=== PATIENT | male | born 1960 | race Caucasian/White ===

== ENCOUNTER 2025-04-12 03:58 | Emergency (ER) | payer BC, SELFPAY ==
[2025-04-12] VITALS (8 sets, daily range): BP systolic 103–140; BP diastolic 62–73; PULSE 51–62; TEMP 36.7; O2SAT 94–96; BMI 24.4
--- NOTE | 2025-04-12 04:07 | XR_ITS ---
The [address] [address] Patient Name: MICHAEL BAIRES MRN: [id number] date: 1960 Sex: M Assigned Patient Location: ED.MAIN Current Patient Location: Accession/Order Number: [id number] Exam Date: 04/12/2025 04:26 Report Date: 04/12/2025 08:28 At the request of: ALANNA MERAZ DO Procedure: XR chest 1V XR chest 1V 04/12/2025 4:31 AM SIGNS AND SYMPTOMS: ^CP PROTOCOL: Frontal radiograph of the chest COMPARISON: 12/14/2020 FINDINGS: The trachea is midline. The right-sided Aaizjr-t-Aluq has been removed in the interval. There is mild cardiomegaly. The lung parenchyma is clear. The bony thorax is intact. XR/XR chest 1V IMPRESSION: There has been interval development of mild cardiomegaly. A right-sided Puzdha-c-Huto has been removed. No focal consolidation. Impression dictated by: Ovidio Cade M.D. 04/12/2025 8:28 AM Dictation Location: [place] [address] Electronically authenticated by: [id number] Y Date: 04/12/2025 08:28
--- NOTE | 2025-04-12 04:07 | ECG_ITS ---
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 Measurements Intervals [place] Rate: 55 P: 47 NM: 180 QRS: 37 QRSD: 82 T: 43 QT: 414 QTc: 402 Interpretive Statements 1100 Sinus rhythm 3434 Septal myocardial infarction, age undetermined 9150 abnormal ECG No previous ECG available for comparison Electronically Signed On 04-12-2025 6:47:16 EST by LOUIE RAMIREZ M.D.
--- NOTE | 2025-04-12 04:11 | ED.GENADUL1 ---
HPI HPI - General Adult General Chief complaint: Chest Pain Stated complaint: CHEST PAIN Time Seen by Provider: 04/12/25 04:07 Source: patient Mode of arrival: ambulance History of Present Illness HPI narrative: Patient is a 65-year-old male presenting to the emergency department for evaluation of chest pain. 1 hour prior to arrival, the patient was awoken out of his sleep for chest pain. He states the pain was located in the center of his chest and radiated to his left arm. He states he became hot and sweaty when this occurred. He states he typically has chest pain secondary to GERD, however the radiation of pain to his arm and feeling of being hot bleeding concern for a possible heart attack. The patient states he had a heart attack back in 2019 where he needed a stent in his LAD for 100% occlusion. He is now on aspirin and statin daily. His last exercise stress test was September of this year, which he stated was normal. He states he is typically active with no symptoms of shortness of breath or chest pain. He denies any abdominal pain. No nausea or vomiting. He states the pain lasted approximate 20 minutes before subsiding. He is currently asymptomatic. He received 324 mg of oral aspirin by EMS providers. Related Data Home Medications ?Medication ?Instructions ?Recorded ?Confirmed aspirin 81 mg tablet,delayed 81 mg PO DAILY 04/12/25 04/12/25 release (Adult Aspirin Regimen) atorvastatin 10 mg tablet 10 mg PO DAILY 04/12/25 04/12/25 pantoprazole 40 mg tablet,delayed 40 mg PO DAILY 04/12/25 04/12/25 release Allergies Allergy/AdvReac Type Severity Reaction Status Date / Time azithromycin (From Zithromax) Allergy Hives Verified 04/12/25 04:09 Sulfa (Sulfonamide Allergy Hives Verified 04/12/25 04:09 Antibiotics) Review of Systems ROS Status of ROS 10 or more systems reviewed and unremarkable except as noted in history and below PFSH PFSH Social History Little interest or pleasure in doing things: not at all Feeling down, depressed, or hopeless: not at all Exam Narrative Exam Narrative: CONSTITUTIONAL: Well-appearing, answering questions and following commands appropriately SKIN: Was warm and dry. EYES: No conjunctival pallor. EARS, NOSE, THROAT: No JVD. RESPIRATORY: Clear to auscultation bilaterally, no wheezes, crackles, or stridor, no use of accessory muscles CARDIOVASCULAR: Normal rate and regular rhythm. There is no S3, S4, murmur, rub. Radial and dorsalis pedis pulses are 2+ and symmetrical. GASTROINTESTINAL: Abdomen was soft, non-tender, and non-distended. There is no guarding or rebound tenderness MUSCULOSKELETAL: There was no lower extremity edema, erythema, or tenderness. NEUROLOGIC: Patient is awake and alert. Facies were symmetrical. Constitutional Vital Signs, click to edit/add: Last Vital Signs Temp 98.1 F 04/12/25 04:05 Pulse 54 L 04/12/25 06:00 Resp 21 H 04/12/25 06:00 BP 108/66 04/12/25 06:00 Pulse Ox 96 04/12/25 06:00 O2 Del Method Room Air 04/12/25 04:05 Course Vital Signs Vital signs: Vital Signs Pulse Rate 62 04/12/25 04:02 Respiratory Rate 20 04/12/25 04:02 Blood Pressure 140/73 04/12/25 04:02 Pulse Oximetry 96 04/12/25 04:02 Temperature 98.1 F 04/12/25 04:05 Pulse Rate 54 L 04/12/25 06:00 Respiratory Rate 21 H 04/12/25 06:00 Blood Pressure 108/66 04/12/25 06:00 Pulse Oximetry 96 04/12/25 06:00 Oxygen Delivery Method Room Air 04/12/25 04:05 Medical Decision Making [facility] Narrative Medical decision making narrative: Patient is a 65-year-old male presenting to the emergency department for evaluation of chest pain beginning 1 hour prior to arrival. On arrival to the ED, patient received 325 mg of chewed aspirin and 0.4 mg sublingual nitroglycerin by EMS providers. Patient symptoms resolved after he took Mylanta, and prior to nitroglycerin administration. His vital signs on arrival are within normal limits. He is afebrile and hemodynamically stable. He is overall well-appearing with no active chest pain. He has a normal physical examination. Differential diagnosis includes ACS, pneumothorax, GERD, arrhythmia, or other electrolyte/metabolic derangement. IV was established and laboratory studies were obtained. 12 Lead EKG: Sinus bradycardia at a rate of 55. Normal axis. There are QS complexes in the septal leads, consistent with his prior history of AL. No ST segment elevations or depressions. QRS, UT, and QTc interval within normal limits. Final impression: Sinus bradycardia without evidence of acute myocardial ischemia. Laboratory studies were unremarkable. No significant electrolyte or metabolic derangement. No evidence of acute kidney injury. No anemia, leukocytosis, or thrombocytopenia. Initial and repeat 2-hour troponin negative. Chest x-ray independently reviewed/interpreted by myself demonstrated no acute cardiopulmonary process. On reevaluation, patient states he feels well. He has been pain-free since his arrival to the ED. Repeat set of vital signs remained within normal limits. I do believe he is stable for discharge. Given the resolution of his symptoms with Mylanta, his symptoms may be secondary to GERD. He has a HEART score of 4 (moderately suspicious history, age 65, greater than 3 risk factors/history of atherosclerotic disease) putting him at moderate risk for major adverse cardiac events. 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 He is already on a daily aspirin and statin. He was instructed to immediately return to the emergency department should his symptoms recur/worsen. Patient understands and agrees to the plan. FINAL IMPRESSION: #Acute chest pain, resolved DISPOSITION: Discharged home CONDITION: Good Lab Data Lab results reviewed: Yes I reviewed the patient's lab results Labs: Lab Results 04/12/25 04/12/25 Range/Units 04:20 05:35 WBC 4.6 (4.0-11.0) 10^3/uL RBC 4.39 L (4.70-6.10) 10^6/uL Hgb 13.1 L (14.0-18.0) g/dL Hct 38.7 L (42.0-54.0) % MCV 88.2 (80.0-94.0) fL MCH 29.8 (25.9-34.0) pg MCHC 33.9 (29.9-35.2) g/dL RDW 14.6 (11.0-15.0) % Plt Count 166 (150-450) 10^3/uL MPV 9.4 L (9.5-13.5) fL Neut % (Auto) 54.6 (43.0-75.0) % Lymph % (Auto) 30.5 (20.5-60.0) % [place] % (Auto) 10.0 (1.7-12.0) % Eos % (Auto) 4.3 (0.9-7.0) % Baso % (Auto) 0.4 (0.2-2.0) % Neut # (Auto) 2.5 (1.4-6.5) 10^3/uL Lymph # (Auto) 1.4 (1.2-3.8) 10^3/uL [place] # (Auto) 0.5 (0.3-0.8) 10^3/uL Eos # (Auto) 0.2 (0.0-0.7) 10^3/uL Baso # (Auto) 0.0 (0.0-0.1) 10^3/uL Abs Immat Gran (auto) 0.01 (0.00-0.03) 10^3/uL Imm/Tot Granulo (auto) 0.2 (0.0-0.5) % Sodium 137 (136-145) mmol/L Potassium 4.7 (3.5-5.1) mmol/L Chloride 105 (98-107) mmol/L Carbon Dioxide 29.3 (21.0-32.0) mmol/L Anion Gap 7.4 BUN 17.0 (7.0-18.0) mg/dL Creatinine 1.04 (0.70-1.30) mg/dL Est GFR ( Amer) >60 (>=60 mL/min/1.73m^2) Est GFR (Non-Af Amer) >60 (>=60 mL/min/1.73m^2) BUN/Creatinine Ratio 16.3 Glucose 122 H (74-106) mg/dL Calcium 9.0 (8.5-10.1) mg/dL Troponin I High Sens 11.4 11.5 (4.0-76.1) pg/mL Imaging Data Chest x-ray: Attestation: I personally reviewed and interpreted this imaging study as follows: ECG Data Attestation: I personally reviewed and interpreted this ECG as follows: Discharge Plan Discharge Chief Complaint: Chest Pain Clinical Impression: Chest pain Patient Disposition: Home, Self-Care Time of Disposition Decision: 05:30 Condition: Good Mode of Transportation: Private Vehicle Prescriptions / Home Meds: No Action pantoprazole 40 mg tablet,delayed release (DR/EC) 40 mg PO DAILY aspirin [Adult Aspirin Regimen] 81 mg tablet,delayed release (DR/EC) 81 mg PO DAILY atorvastatin 10 mg tablet 10 mg PO DAILY Print Language: Turkmen Instructions: Chest Pain (ED)
[2025-04-12 04:27] LABS: Hematocrit 38.7 % (42.0-54.0); Hemoglobin 13.1 g/dL (14.0-18.0); Immature Granulocytes Abs Auto 0.01 10^3/uL (0.00-0.03); Immature Granulocytes Pct Auto 0.2 % (0.0-0.5); Lymphocytes Absolute Auto 1.4 10^3/uL (1.2-3.8); Mean Corpuscular HGB Conc 33.9 g/dL (29.9-35.2); Mean Corpuscular Hemoglobin 29.8 pg (25.9-34.0); Mean Corpuscular Volume 88.2 fL (80.0-94.0); Platelet Count 166 10^3/uL (150-450); Red Blood Count 4.39 10^6/uL (4.70-6.10); White Blood Count 4.6 10^3/uL (4.0-11.0)
[2025-04-12 04:44] LABS: Anion Gap 7.4; Blood Urea Nitrogen 17.0 mg/dL (7.0-18.0); Calcium 9.0 mg/dL (8.5-10.1); Carbon Dioxide 29.3 mmol/L (21.0-32.0); Chloride 105 mmol/L (98-107); Estimated GFR (African America >60 (>=60 mL/min/1.73m^2); Estimated GFR (Non-African Ame >60 (>=60 mL/min/1.73m^2); Glucose 122 mg/dL (74-106); Sodium 137 mmol/L (136-145)
[2025-04-12 04:48] LABS: Potassium 4.7 mmol/L (3.5-5.1)
--- OUTSIDE RECORDS SUMMARY | 2025-04-12 05:59 | XMS_ITS | Clinical Summary ---
Author Organization [facility] s [facility] Address [facility] [address] [place] [address] Care Team Providers Care All Source Intelligence Analyst Name Role Phone Gloria Chase MD Primary Care Provider [phone] Allergies Active AllergyReactionsCriticalityNoted DateCommentsSulfa (Sulfonamide Antibiotics)Hives02/13/20179696RubgdzqttkazKkfjx46/03/2017 Medications No known medications Family History Medical HistoryRelationNameCommentsNo Known ProblemsFatherNo Known Problems MotherRelationNameStatusCommentsFatherMother Social History Tobacco UseTypesPacks/DayYears UsedDateSmoking Tobacco: NeverSmokeless Tobacco: NeverAlcohol UseStandard Drinks/WeekCommentsNo0 (1 standard drink = 0.6 oz pure alcohol)ChildcareAnswerDate SqtvabhxAmdvfpkuzOkmppdw73/10/2019EmploymentAnswer Date CuvhyrsgEvboimkadwRafjzjw44/10/2019Purpose - LifeAnswerDate RecordedPurpose and direction in dqppWtuxzie34/10/2021ex and Gender InformationValueDate RecordedSex Assigned at BirthNot on fileLegal CpkDtuo9812/15/2014 4:08 PM EDT Gender IdentityNot on fileSexual OrientationNot on file Last Filed Vital Signs Vital SignReadingTime TakenCommentsBlood Radryfas308/7510 1:15 PM EDT Zbvhg4627 11:25 AM NNRWkzhqyvhgwl60.7 ??C (98.1 ??F)03/08/2017 10:55 AM EDTRespiratory Oydr4080 11:25 AM EDTOxygen Tsxqkwemth08%03/08/2017 1:15 PM EDTInhaled Oxygen Concentration--Kkdybs62.1 kg (170 lb)03/08/2017 7:29 AM EDT Fditbm489.3 cm (5' 9 )03/08/2017 7:29 AM EDTBody Mass Index25. 7:29 AM EDT Plan of Treatment Not on file Medical Devices Not on file Insurance Care Teams Team MemberRelationshipSpecialtyStart DateEnd Date Gloria Chase MD PCP - GeneralFamily Vvpsrjvt16/2/17
--- OUTSIDE RECORDS SUMMARY | 2025-04-12 05:59 | XMS_ITS | Clinical Summary ---
Author Organization [facility] Address [address] [place] [address] Care Team Providers Care Ditching Machine Engineer Name Role Phone Unavailable Primary Care Provider Unavailabl e Family History Medical HistoryRelationNameCommentsDiabetesPaternal GrandmotherRelationName StatusCommentsChildAliveFatherAliveMaternal GrandfatherDeceasedMaternal GrandmotherDeceasedMotherAliveOtherSpouseAlivePaternal GrandmotherDeceased SiblingAlive Social History Tobacco UseTypesPacks/DayYears UsedDateSmoking Tobacco: Never Tobacco Cessation:Counseling Given: Not Answered Alcohol UseStandard Drinks/WeekCommentsNever0 (1 standard drink = 0.6 oz pure alcohol)caffeine: 2-3 cups per day teaSex and Gender InformationValueDate RecordedSex Assigned at BirthNot on fileLegal JzvEgqb7507/26/2022 6:43 PM EDT Gender IdentityNot on fileSexual OrientationNot on file Last Filed Vital Signs Vital SignReadingTime TakenCommentsBlood Ndhbcmaf494/7009 12:00 PM EDT Pulse--Temperature--Respiratory Rate--Oxygen Saturation--Inhaled Oxygen Concentration--Lqxjie17.6 kg (171 lb)03/20/2022 12:00 PM SNMZrepcv171.3 cm (5' 9 )03/20/2022 12:00 PM ESTBody Mass Index25.25105/20/2021 12:00 PM EST Plan of Treatment Not on file Insurance
--- OUTSIDE RECORDS SUMMARY | 2025-04-12 05:59 | XMS_ITS | Encounter Summary ---
Author Organization [facility] Address [address] [place] [address] Care Team Providers Care Shipfitter Helper Name Role Phone Domingo Sarah(Historical) Unavailable Candice vailable Gui Lujan MD Unavailable [phone] Shanita Kaplan APRN.GREEN LUMBER GRADER Unavailable [phone] Deyvn Hair MD Unavailable Sylvia Morris GREEN LUMBER GRADER Unavailable [phone] Chase Schultz MD Primary Care Provider [phone] Tom Umanzor MD Unavailable [phone] Alesia Trevizo MD Unavailable [phone] Source Comments In the event this information is protected by the Federal Confidentiality of Alcohol and Drug AbusePatient Records regulations: The Federal rules restrict any use of the information to criminally investigate or prosecute any alcohol or drug abuse patient.[facility] Reason for Visit * ReasonCommentsRefill Request Encounter Details DateTypeDepartmentCare Team (Latest Contact Info)Xgtxainnqpk28/23/2025Refill Thoracic Clinic [address] [id number] Malathi Massey, BUSINESS EXCELLENCE LEADER.GREEN LUMBER GRADER [address] [place] [address] Refill Request Social History Tobacco UseTypesPacks/DayYears UsedDateSmoking Tobacco: NeverPassive Smoke Exposure: NeverSmokeless Tobacco: NeverAlcohol UseStandard Drinks/WeekComments Never0 (1 standard drink = 0.6 oz pure alcohol)AUDIT-CAnswerDate RecordedQ1: How often do you have a drink containing alcohol?Never01/14/2020Average Number of DrinksNot on file01/14/2020Frequency of Binge DrinkingNot on file01/14/2020PHQ-2 AnswerDate RecordedPHQ-2 wmvuv901/15/2025Area Deprivation IndexAnswerDate RecordedNational Score (1-100), lower number is lower knqn41914State Score (1-10), lower number is lower fzzr4724Data from: https://www.neighborhoodatlas.medicine.[facility].edu/. Last address used for rabcubwwxkt6060 FZMOLVFL77/28/2024Sex and Gender InformationValueDate Recorded Sex Assigned at PduhfEoir52/28/2020 9:14 PM EDTLegal KsgYxpd42/02/2012 8:28 AM ESTGender YtugrqjnFmia57/28/2020 9:14 PM EDTSexual CcxpinqhokfPeqwteen68/28/2020 9:14 PM EDTdocumented as of this encounter Functional Status * Are you deaf or do you have serious difficulty hearing?AnswerDate of NhciukydrnVdqrpgBe64/08/2023 4:43 PM Geovanna Juarez RN * Are you blind or do you have serious difficulty seeing, even when wearing glasses?AnswerDate of VwmfdlejxhObeznwRm01/08/2023 4:43 PM Geovanna Juarez RN * Do you have serious difficulty walking or climbing stairs?AnswerDate of ZdjsczzcmjLzhnudCi53/08/2023 4:43 PM Geovanna Juarez RN * Do you have difficulty dressing or bathing?AnswerDate of AssessmentAuthorNo 04/20/2023 4:43 PM Geovanna Juarez RN * Because of a physical, mental, or emotional condition, do you have difficulty doing errands alone such as visiting a doctor's office or shopping?AnswerDate of YmgpcustnnOfskefOh11/08/2023 4:43 PM Geovanna Juarez RN documented as of this encounter Mental Status * Because of a physical, mental, or emotional condition, do you have serious difficulty concentrating, remembering, or making decisions?AnswerEntry Date LebqneIk96/08/2023 4:43 PM Geovanna Juarez RN documented in this encounter Plan of Treatment DateTypeDepartmentCare Team (Latest Contact Info)Zrfkmpzgmtr98/17/2026 8:15 AM EDTAppointment Radiology Pet CT [address] [place] [address] [place] [address] Ct CAP with contrast and lab09/04/2025 9:20 AM EDTVisit (SP) Office Hematology/Oncology [address] [place] [address] [place] [address] Gui Lujan MD [address] [place] [address] [place] [address] 6 month follow up for ct and lab resultsdocumented as of this encounter Visit Diagnoses Not on filedocumented in this encounter Care Teams Team MemberRelationshipSpecialtyStart DateEnd Date Chase Schultz MD [address] [place] [address] PCP - GeneralFamily Cpucjpru01/18/23 Domingo Sarah(Historical) Referring11/11/19 Gui Lujan MD [address] [place] [address] [place] [address] PhysicianHematology/Oncology01/05/20 Shanita Kaplan APRN.GREEN LUMBER GRADER [address] [place] [address] [place] [address] Nurse PractitionerHematology/Oncology01/05/20 Devyn Hair MD [address] [place] [address] [place] [address] PhysicianRadiation Oncology01/05/20 Sylvia Morris, GREEN LUMBER GRADER [address] [place] [address] [place] [address] ReferringFamily Medicine12/07/22 Tom Umanzor MD [address] [place] [address] Iglcfrzuhu68/4/23 Alesia Trevizo MD [address] [place] [address] Primary Staff EolcctxyaIopzhbcixl36/6/23documented as of this encounter
--- OUTSIDE RECORDS SUMMARY | 2025-04-12 05:59 | XMS_ITS | Clinical Summary ---
Author Organization [facility] Address [address] [place] [address] Phone Care Team Providers Care Casing In Line Setter Name Role Phone Chase Schultz MD Primary Care Provider [phone] Allergies Active AllergyReactionsCriticalityNoted DateCommentsAzithromycinHives,Rash, PiifubjUaw76/03/6132DkyxsytydQtvbegx61/08/2023Sulfa (Sulfonamide Antibiotics) Hives07/22/2009 Medications MedicationSigDispense QuantityRefillsLast FilledStart DateEnd DateStatus aspirin 81 mg EC tablet Take 1 tablet (81 mg) by mouth once daily.Active pantoprazole (ProtoNix) 40 mg EC tablet Take 1 tablet (40 mg) by mouth once daily.5Active atorvastatin (Lipitor) 10 mg tablet Indications:Atherosclerosis of [place] coronary artery of [place] heart without angina pectoris,Mixed hyperlipidemiaTake 1 tablet (10 mg) by mouth once daily. 90 tablet /6Active Active Problems ProblemNoted DateDiagnosed DateAcute ST elevation myocardial infarction (STEMI) involving left anterior descending coronary tnpirn9109/29/2024 Assessment & Plan (09/30/2024 12:59 PM EDT): Reports October 2018 Anterior STEMI managed by Dr. Beck at [facility]. Atherosclerotic heart disease of [place] coronary artery without angina pectoris 09/29/2024 Assessment & Plan (09/30/2024 1:01 PM EDT): October 2018 cardiac cath (records needed) LAD PCI/AVINASH Jun 2022 MPI No overt ischemia Prior anterior [place] EF 45% with mild anterior apical hypokinesis TID ratio 0.78 Report Jan 2024 MPI at [facility] Current daily activity > 4 METs without concerning symptoms Ischemic xfikigtijmvdus84/19/2025 Assessment & Plan (09/30/2024 1:02 PM EDT): Reports at time of October 2018 Anterior STEMI ef 30% - he was on 'some meds that I had to stop because made my blood pressure too low'; wore a lifevest for 3 months. October 2022 TTE EF 55-60% AR mild Hyperlipidemia, jqrozfnxyqk50/19/2025 Assessment & Plan (09/30/2024 1:03 PM EDT): Low intensity statin May 2024 HDL 35: LDL 88 BMI 25.0-25.9,adult09/29/2024 Assessment & Plan (09/30/2024 1:03 PM EDT): Reviewed the merits of healthy lifestyle choices on overall cardiovascular health. Family History Medical HistoryRelationNameCommentsNo Known ProblemsBrotherNo Known Problems FatherOvarian cancerMotherNo Known ProblemsSisterRelationNameStatusComments BrotherFatherMotherSister Social History Tobacco UseTypesPacks/DayYears UsedDateSmoking Tobacco: NeverSmokeless Tobacco: Never Tobacco Cessation:Counseling Given: Yes Alcohol UseStandard Drinks/WeekCommentsNever0 (1 standard drink = 0.6 oz pure alcohol)Sex and Gender InformationValueDate RecordedSex Assigned at BirthNot on fileLegal DtzOpri00/26/2022 4:30 PM ESTGender IdentityNot on fileSexual OrientationNot on file Last Filed Vital Signs Vital SignReadingTime TakenCommentsBlood Ezzkujwu920/8606 10:59 AM EDT Zplsk596610/27/2024 10:59 AM EDTTemperature--Respiratory Rate--Oxygen Saturation-- Inhaled Oxygen Concentration--Wkhpyu14.7 kg (178 lb)09/29/2024 10:14 AM EDT Xdioou386.5 cm (5' 9.5 )09/29/2024 10:14 AM EDTBody Mass Index25.9109/29/2024 10:14 AM EDT Plan of Treatment DateTypeDepartmentCare Team (Latest Contact Info)Epeaqmqvbrf98/17/2025 10:30 AM ESTOffice Visit [facility] [address] [phone] Timothy Stone MD [address] [facility] [address] [place], [place] [id number] Health MaintenanceDue DateLast DoneCommentsHIV Zpnecaare1961Lipid Panel 1960Yearly Adult Iuqjujhq1960MMR Vaccines (1 of 1 - Standard series) 2Diabetes Wfgquiaab73/06/1979Hepatitis C Mcbnsiovl36/06/1979 Pneumococcal Vaccine (1 of 2 - PCV)01/18/1980DTaP/Tdap/Td Vaccines (1 - Tdap) 1983PSA Prostate Cancer Vjmhyngcg16/06/2011RSV High Risk: (Elderly (60+) or Population) (1 - Risk 50-74 years 1-dose series)2011Zoster Vaccines (1 of 2)2011Influenza Vaccine (#1)5COVID-19 Vaccine (3 - 2024- season)501/, 2SigmoidoscopyDiscontinued 04/05/2022, 08/06/2020, 1804LvcuvautesiAumiouuobrtk94/11/2025, 04/05/2022 Colorectal Cancer ScreeningDiscontinuedCT ColonographyDiscontinuedFIT-DNA (Cologuard)DiscontinuedFITDiscontinuedHIB VaccinesAged OutNo longer eligible based on patient's age to complete this topicHPV VaccinesAged OutNo longer eligible based on patient's age to complete this topicHepatitis A VaccinesAged OutNo longer eligible based on patient's age to complete this topicHepatitis B VaccinesAged OutNo longer eligible based on patient's age to complete this topic IPV VaccinesAged OutNo longer eligible based on patient's age to complete this topicMeningococcal VaccineAged OutNo longer eligible based on patient's age to complete this topicRotavirus VaccinesAged OutNo longer eligible based on patient's age to complete this topic Insurance MemberSubscriberPlan / Payer (Effective 2024-Present)Name:Good Donahue Member ID:[id number] Relation to Subscriber:SelfName:Good Donahue Subscriber ID:[id number] Payer ID:[id number] (NAIC) Type:Not on file Address: [address] Care Teams Team MemberRelationshipSpecialtyStart DateEnd Date Chase Schultz MD [address] [facility] [place] [address] PCP - [facility] Medicine09/29/24
--- OUTSIDE RECORDS SUMMARY | 2025-04-12 05:59 | XMS_ITS | Encounter Summary ---
Author Organization [facility] Address [address] [place] [address] Care Team Providers Care Dowel Inspector Name Role Phone Domingo Sarah(Historical) Unavailable Candice vailable Gui Lujan MD Unavailable [phone] Shanita Kaplan APRN.QUALIFICATIONS EXAMINER Unavailable [phone] Devyn Hair MD Unavailable Sylvia Morris QUALIFICATIONS EXAMINER Unavailable [phone] Chase Schultz MD Primary Care Provider [phone] Tom Umanzor MD Unavailable [phone] Alesia Trevizo MD Unavailable [phone] Source Comments In the event this information is protected by the Federal Confidentiality of Alcohol and Drug AbusePatient Records regulations: The Federal rules restrict any use of the information to criminally investigate or prosecute any alcohol or drug abuse patient.[facility] Reason for Visit * ReasonOnset DateCommentsRefill Fpgyhkv0404/08/2025 Encounter Details DateTypeDepartmentCare Team (Latest Contact Info)Mogfgcthovc66/26/2025Refill [facility] [address] [place] [address] Malathi Massey, RN TRAVEL.QUALIFICATIONS EXAMINER [address] [place] [address] Refill Request Social History Tobacco UseTypesPacks/DayYears UsedDateSmoking Tobacco: NeverPassive Smoke Exposure: NeverSmokeless Tobacco: NeverAlcohol UseStandard Drinks/WeekComments Never0 (1 standard drink = 0.6 oz pure alcohol)AUDIT-CAnswerDate RecordedQ1: How often do you have a drink containing alcohol?Never01/14/2020Average Number of DrinksNot on file01/14/2020Frequency of Binge DrinkingNot on file01/14/2020PHQ-2 AnswerDate RecordedPHQ-2 /15/2025Area Deprivation IndexAnswerDate RecordedNational Score (1-100), lower number is lower zsmg667803/10/2024State Score (1-10), lower number is lower lucu5774Data from: https://www.neighborhoodatlas.[facility].edu/. Last address used for zcvcpahyagg[address] BAAMIWDX66/28/2024Sex and Gender InformationValueDate Recorded Sex Assigned at FxlbeNedm40/28/2020 9:14 PM EDTLegal PtiUzdp98/02/2012 8:28 AM ESTGender WnlphwfvUyhq06/28/2020 9:14 PM EDTSexual ZdaarufzwliBhwprrrd94/28/2020 9:14 PM EDTdocumented as of this encounter Functional Status * Are you deaf or do you have serious difficulty hearing?AnswerDate of PtncjzqlajAvkxwfHc39/08/2023 4:43 PM Geovanna Juarez RN * Are you blind or do you have serious difficulty seeing, even when wearing glasses?AnswerDate of PtucfcbtraXklyfnVg14/08/2023 4:43 PM Geovanna Juarez RN * Do you have serious difficulty walking or climbing stairs?AnswerDate of SqvufcgghdFzlrydDu52/08/2023 4:43 PM Geovanna Juarez RN * Do you have difficulty dressing or bathing?AnswerDate of AssessmentAuthorNo 04/20/2023 4:43 PM Geovanna Juarez RN * Because of a physical, mental, or emotional condition, do you have difficulty doing errands alone such as visiting a doctor's office or shopping?AnswerDate of AbmczxpunwKpwiwfWr82/08/2023 4:43 PM Geovanna Juarez RN documented as of this encounter Mental Status * Because of a physical, mental, or emotional condition, do you have serious difficulty concentrating, remembering, or making decisions?AnswerEntry Date LuaancWl32/08/2023 4:43 PM Geovanna Juarez RN documented in this encounter Plan of Treatment DateTypeDepartmentCare Team (Latest Contact Info)Ulsgrpytdyx42/17/2026 8:15 AM EDTAppointment Radiology Pet CT [address] [facility] [address] Ct CAP with contrast and lab09/04/2025 9:20 AM EDTVisit (SP) Office Hematology/Oncology [address] [place] [address] [place] [address] Gui Lujan MD [address] [place] [address] [place] [address] 6 month follow up for ct and lab resultsdocumented as of this encounter Visit Diagnoses Not on filedocumented in this encounter Care Teams Team MemberRelationshipSpecialtyStart DateEnd Date Chase Schultz MD [facility] [place] [address] PCP - GeneralFamily Btfrxfbi20/18/23 Domingo Sarah(Historical) Referring11/11/19 Gui Lujan MD [address] [place] [address] [place] [address] PhysicianHematology/Oncology01/05/20 Shanita Kaplan APRN.QUALIFICATIONS EXAMINER [address] [place] [address] [place] [address] Nurse PractitionerHematology/Oncology01/05/20 Devyn Hair MD [address] [place] [address] [place] [address] PhysicianRadiation Oncology01/05/20 Sylvia Morris, QUALIFICATIONS EXAMINER [address] [place] [id number] ReferringFamily Medicine12/07/22 oTm Umanzor MD [address] [place] [address] Tibzpxiqhe66/4/23 Alesia Trevizo MD [address] [place] [address] Primary Staff YvxzfgxelVhcjvxcygu45/6/23documented as of this encounter
--- OUTSIDE RECORDS SUMMARY | 2025-04-12 05:59 | XMS_ITS | Clinical Summary ---
Author Organization [facility] Address [address] [place] [id number] Care Team Providers Care [place] Layer Name Role Phone Domingo Sarah(Historical) Unavailable Candice vailable Gui Lujan MD Unavailable [phone] Shanita Kaplan APRN.SENIOR COMPLIANCE ANALYST Unavailable [phone] Devyn Hair MD Unavailable Sylvia Morris SENIOR COMPLIANCE ANALYST Unavailable [phone] Chase Schultz MD Primary Care Provider [phone] Tom Umanzor MD Unavailable [phone] Alesia Trevizo MD Unavailable [phone] Allergies Active AllergyReactionsCriticalityNoted DateCommentsAzithromycinHives,Rash 02/13/20174335DndmxfyehEbytnqgnclc18/08/2023Sulfa (Sulfonamide Antibiotics) 07/22/2009 Medications MedicationSigDispense QuantityRefillsLast FilledStart DateEnd DateStatus aspirin, enteric coated (ASPIRIN, ENTERIC COATED) 81 mg EC tablet Take 81 mg by mouth once daily.Active ZINC ORAL Take 30 mg by mouth once daily.Active ascorbic acid (VITAMIN C ORAL) Take 1,000 mg by mouth once daily.Active atorvastatin (LIPITOR) 10 mg tablet Take 10 mg by mouth once daily. Active B1/B2/niacin/B12/protease (B-COMPLEX WITH B-12 ORAL) Take 1 tablet by mouth once daily.03/16/2023ctive iv contrast (will be provided with radiology test) Indications:Malignant neoplasm of rectum (HCC)CT Chest ABD/PEL-Inject, intravenously, once for 1 dose.No IV access, insert saline lock prior to the beginning of sedation, infusion, injection of imaging exam. Discontinue saline lock post exam. IfPt. has a central line or IVAD, may access for administration according to line specific nursing protocol. Once exam is complete flush line and de-access according to line specific nursing protocol in the CT contrast administration guidelines link. 1 Each 09/03/2023ctive enteric contrast (will be provided with radiology test) Indications:Malignant neoplasm of rectum (HCC)For CT CHESTABD/PEL W IVCON Routine order Administer, As Directed One Time Only, via Oral, Rectal, both Oral and Rectal, Enteric Tube, Stoma or Indwelling Catheter, Enteric Contrast as designated perenteric contrast guidelines 1 Each 09/03/2023ctive iv contrast (will be provided with radiology test) Indications:Malignant neoplasm of rectum (HCC),Multiple lung nodulesCT Chest ABD/PEL-Inject, intravenously, once for 1 dose.No IV access, insert saline lock prior to the beginning of sedation, infusion, injection of imaging exam. Discontinue saline lock post exam. IfPt. has a central line or IVAD, may access for administration according to line specific nursing protocol. Once exam is complete flush line and de-access according to line specific nursing protocol in the CT contrast administration guidelines link. 1 Each 03/10/2024ctive enteric contrast (will be provided with radiology test) Indications:Malignant neoplasm of rectum (HCC),Multiple lung nodulesFor CT CHESTABD/PEL W IVCON Routine order Administer, As Directed One Time Only, via Oral, Rectal, both Oral and Rectal, Enteric Tube, Stoma or Indwelling Catheter, Enteric Contrast as designated perenteric contrast guidelines 1 Each 03/10/2024ctive iv contrast (will be provided with radiology test) Indications:Malignant neoplasm of rectum (HCC),Multiple lung nodules,Elevated blood sugarCT Chest ABD/PEL-Inject, intravenously, once for 1 dose.No IV access, insert saline lock prior to the beginning of sedation, infusion, injection of imaging exam. Discontinue saline lock post exam. IfPt. has a central line or IVAD, may access for administration according to line specific nursing protocol. Once exam is complete flush line and de-access according to line specific nursing protocol in the CT contrast administration guidelines link. 1 each 5Active enteric contrast (will be provided with radiology test) Indications:Malignant neoplasm of rectum (HCC),Multiple lung nodules,Elevated blood sugarFor CT CHESTABD/PEL W IVCON Routine order Administer, As Directed One Time Only, via Oral, Rectal, both Oral and Rectal, Enteric Tube, Stoma or Indwelling Catheter, Enteric Contrast as designated perenteric contrast guidelines 1 each 5Active ubidecarenone Q-10 (CO Q-10) 10 mg cap Take by mouth two times a day.Active iv contrast (will be provided with radiology test) Indications:Malignant neoplasm of rectum (HCC),Multiple lung nodulesCT Chest ABD/PEL-Inject, intravenously, once for 1 dose.No IV access, insert saline lock prior to the beginning of sedation, infusion, injection of imaging exam. Discontinue saline lock post exam. IfPt. has a central line or IVAD, may access for administration according to line specific nursing protocol. Once exam is complete flush line and de-access according to line specific nursing protocol in the CT contrast administration guidelines link. 1 each 5Active enteric contrast (will be provided with radiology test) Indications:Malignant neoplasm of rectum (HCC),Multiple lung nodulesFor CT CHESTABD/PEL W IVCON Routine order Administer, As Directed One Time Only, via Oral, Rectal, both Oral and Rectal, Enteric Tube, Stoma or Indwelling Catheter, Enteric Contrast as designated perenteric contrast guidelines [address] (PROTONIX) 40 mg tablet Take 1 tablet by mouth once daily. [address] (PROTONIX) 40 mg tablet Take 1 tablet by mouth once daily. 30 tablet Discontinued Active Problems ProblemNoted DateDiagnosed DateChest pain of uncertain cwhsoful76/07/2023 Rgntaxocb24/07/2023ttention to tvtxdqseo64/13/2021 Assessment & Plan (11/26/2020 9:13 AM EDT): ASSESSMENT: -this is a 60 y/o male??with rectal cancer s/p neoadjuvant therapy who underwent diagnostic laparoscopy, laparoscopic mobilization of splenic flexure, laparoscopic-assisted low anterior resection of the rectum and sigmoid with??total mesorectal excision and high vascular tie, double stapled low end- to-end colorectal anastomosis, flexible sigmoidoscopy, and creation of diverting loop??ileostomy on08/30/20 -he now presents for ileostomy closure PLAN: -POD 1 anorectal exam under anesthesia and complete colonoscopy, closure of loop ileostomy by segmental resection of ileum and stapled [id number]-ws-[id number] anastomosis -okay for GIS diet -passing flatus, no BM yet -[facility] paste ordered -no needs home going Hiatal ejvbxn4011/23/2020Malnutrition of moderate annvjj6209/03/2020 Assessment & Plan (09/09/2020 8:20 AM EDT): PLAN: -encourage GIS diet + supplements as tolerated Assessment & Plan (09/08/2020 10:27 AM EDT): PLAN: -encourage GIS diet + supplements as tolerated -discussed with patient about slowing down PO intake until stoma functioning more Assessment & Plan (09/07/2020 8:42 AM EDT): PLAN: -encourage GIS diet + supplements Assessment & Plan (09/06/2020 8:51 AM EDT): PLAN: -encourage GIS diet + supplements Smgxiqcpovzudczk73/19/2021 Assessment & Plan (11/26/2020 9:12 AM EDT): PLAN: -replace per protocol if phos <2.5 -monitor with labs Assessment & Plan (09/09/2020 8:19 AM EDT): PLAN: -replace per protocol if phos <2.5 -monitor with labs Assessment & Plan (09/08/2020 10:26 AM EDT): PLAN: -replace per protocol if phos <2.5 -monitor with labs Assessment & Plan (09/07/2020 8:42 AM EDT): PLAN: -replace per protocol if phos <2.5 -monitor with labs Assessment & Plan (09/06/2020 8:51 AM EDT): PLAN: -replace per protocol if phos <2.5 -monitor with labs Assessment & Plan (09/04/2020 8:10 AM EDT): PLAN: -replace per protocol if phos <2.5 -monitor with labs Assessment & Plan (09/03/2020 10:04 AM EDT): PLAN: -replace per protocol if phos <2.5 -monitor with labs Assessment & Plan (09/02/2020 12:37 PM EDT): PLAN: -replace per protocol if phos <2.5 -monitor with labs Assessment & Plan (09/01/2020 12:18 PM EDT): PLAN: -replace per protocol if phos <2.5 -monitor with labs Assessment & Plan (08/30/2020 6:21 AM EDT): PLAN: -replace per protocol if phos <2.5 -monitor with labs CAD (coronary artery disease)08/28/2020 Overview (08/28/2020): H/o myocardial infarction in October 2018 requiring PCI and stenting. Subsequently had positive stresstest requiring reintervention with PCI in October 2019. - ASA 81 - Home metop - Cards consult - Echo ordered Assessment & Plan (11/23/2020 1:13 PM EDT): S/p NC 10/2018, had stent x1 Current on ASA 81 mg, metoprolol, followed by local cardiology Last office visit 10/21/20 in [place] No CP with jogging short distance or stairs No recent stress test but has EKG today and Echo 08/29/20 in Epic Assessment & Plan (11/23/2020 11:02 AM EDT): ASSESSMENT: -patient with history of NC in October 2018 requiring PCI/stenting -then had + stress test requiring further intervention (PCI) in October 2019 PLAN: -continue with close cardiology F/U Assessment & Plan (09/09/2020 8:19 AM EDT): ASSESSMENT: -patient with history of NC in October 2018 requiring PCI/stenting -then had + stress test requiring further intervention (PCI) in October 2019 PLAN: -admitted for pre-operative clearance prior to planned OR -cardiology consulted; appreciate recommendations -underwent ECHO; EF ~50% -will need to discuss with home childcare teacher statin therapy Assessment & Plan (09/08/2020 10:26 AM EDT): ASSESSMENT: -patient with history of NC in October 2018 requiring PCI/stenting -then had + stress test requiring further intervention (PCI) in October 2019 PLAN: -admitted for pre-operative clearance prior to planned OR -cardiology consulted; appreciate recommendations -underwent ECHO; EF ~50% -will need to discuss with home childcare teacher statin therapy Assessment & Plan (09/07/2020 8:42 AM EDT): ASSESSMENT: -patient with history of NC in October 2018 requiring PCI/stenting -then had + stress test requiring further intervention (PCI) in October 2019 PLAN: -admitted for pre-operative clearance prior to planned OR -cardiology consulted; appreciate recommendations -underwent ECHO; EF ~50% -will need to discuss with home childcare teacher statin therapy Assessment & Plan (09/06/2020 8:50 AM EDT): ASSESSMENT: -patient with history of NC in October 2018 requiring PCI/stenting -then had + stress test requiring further intervention (PCI) in October 2019 PLAN: -admitted for pre-operative clearance prior to planned OR -cardiology consulted; appreciate recommendations -underwent ECHO; EF ~50% -will need to discuss with home childcare teacher statin therapy Assessment & Plan (09/05/2020 8:37 AM EDT): ASSESSMENT: -patient with history of NC in October 2018 requiring PCI/stenting -then had + stress test requiring further intervention (PCI) in October 2019 PLAN: -admitted for pre-operative clearance prior to planned OR -cardiology consulted; appreciate recommendations -underwent ECHO; EF ~50% -will need to discuss with home childcare teacher statin therapy Assessment & Plan (09/04/2020 8:09 AM EDT): ASSESSMENT: -patient with history of NC in October 2018 requiring PCI/stenting -then had + stress test requiring further intervention (PCI) in October 2019 PLAN: -admitted for pre-operative clearance prior to planned OR -cardiology consulted; appreciate recommendations -underwent ECHO; EF ~50% -will need to discuss with home childcare teacher statin therapy Assessment & Plan (09/03/2020 10:04 AM EDT): ASSESSMENT: -patient with history of NC in October 2018 requiring PCI/stenting -then had + stress test requiring further intervention (PCI) in October 2019 PLAN: -admitted for pre-operative clearance prior to planned OR -cardiology consulted; appreciate recommendations -underwent ECHO; EF ~50% -will need to discuss with home childcare teacher statin therapy Assessment & Plan (09/02/2020 12:37 PM EDT): ASSESSMENT: -patient with history of NC in October 2018 requiring PCI/stenting -then had + stress test requiring further intervention (PCI) in October 2019 PLAN: -admitted for pre-operative clearance prior to planned OR -cardiology consulted; appreciate recommendations -underwent ECHO; EF ~50% -will need to discuss with home childcare teacher statin therapy Assessment & Plan (09/01/2020 12:17 PM EDT): ASSESSMENT: -patient with history of NC in October 2018 requiring PCI/stenting -then had + stress test requiring further intervention (PCI) in October 2019 PLAN: -admitted for pre-operative clearance prior to planned OR -cardiology consulted; appreciate recommendations -underwent ECHO; EF ~50% -will need to discuss with home childcare teacher statin therapy Assessment & Plan (08/30/2020 6:23 AM EDT): ASSESSMENT: -patient with history of NC in October 2018 requiring PCI/stenting -then had + stress test requiring further intervention (PCI) in October 2019 PLAN: -admitted for pre-operative clearance prior to planned OR -cardiology consulted; appreciate recommendations -underwent ECHO; EF ~50% -will need to discuss with home childcare teacher statin therapy Acute post-operative pain08/24/2020 Assessment & Plan (11/23/2020 11:00 AM EDT): PLAN: -continue with multimodal pain management regimen per ERAS Assessment & Plan (09/09/2020 8:19 AM EDT): PLAN: -continue with multimodal pain management regimen -continue with valium PRN; will transition to PO in preparation for discharge Assessment & Plan (09/08/2020 10:26 AM EDT): PLAN: -continue with multimodal pain management regimen -continue with valium PRN; will transition to PO in preparation for discharge Assessment & Plan (09/07/2020 8:41 AM EDT): PLAN: -continue with multimodal pain management regimen -continue with valium PRN; will transition to PO in preparation for discharge Assessment & Plan (09/06/2020 8:50 AM EDT): PLAN: -continue with multimodal pain management regimen -continue with valium PRN Assessment & Plan (09/05/2020 8:37 AM EDT): PLAN: -continue with multimodal pain management regimen -continue with valium PRN Assessment & Plan (09/04/2020 8:07 AM EDT): PLAN: -continue with multimodal pain management regimen -continue with valium PRN Assessment & Plan (09/03/2020 10:04 AM EDT): PLAN: -continue with multimodal pain management regimen -continue with valium PRN Assessment & Plan (09/02/2020 12:36 PM EDT): PLAN: -continue with multimodal pain management regimen -continue with valium PRN Assessment & Plan (09/01/2020 12:16 PM EDT): PLAN: -continue with multimodal pain management regimen -continue with valium PRN Assessment & Plan (08/30/2020 6:24 AM EDT): PLAN: -continue with multimodal pain management regimen Assessment & Plan (08/24/2020 10:39 AM EDT): PLAN: -continue with multimodal pain management regimen Ileostomy in place08/24/2020 Assessment & Plan (09/09/2020 8:20 AM EDT): PLAN: -patient s/p DLI -viable and functioning following stoma intubation 09/08 -ostomy consult -[facility] consult Assessment & Plan (09/08/2020 10:26 AM EDT): PLAN: -patient s/p DLI -viable and functioning; small volume -ostomy consult; will ask team to intubate stoma today -[facility] consult Assessment & Plan (09/07/2020 8:42 AM EDT): PLAN: -patient s/p DLI -viable and functioning; small volume -ostomy consult -[facility] consult Assessment & Plan (09/06/2020 8:51 AM EDT): PLAN: -patient s/p DLI -viable and functioning -ostomy consult -[facility] consult Assessment & Plan (09/05/2020 8:37 AM EDT): PLAN: -patient s/p DLI -ostomy now functioning -ostomy consult -[facility] consult Assessment & Plan (09/04/2020 8:10 AM EDT): PLAN: -patient s/p DLI -ostomy now functioning -ostomy consult -[facility] consult Assessment & Plan (09/03/2020 10:05 AM EDT): PLAN: -patient s/p DLI -appears less congested; awaiting return of function -ostomy consult -[facility] consult Assessment & Plan (09/02/2020 12:37 PM EDT): PLAN: -patient s/p DLI -appears less congested this AM; awaiting return of function -ostomy consult -[facility] consult Assessment & Plan (09/01/2020 12:18 PM EDT): PLAN: -patient s/p DLI -appears congested this AM; awaiting return of function -ostomy consult -[facility] consult Assessment & Plan (08/31/2020 8:48 AM EDT): PLAN: -patient s/p DLI -viable; awaiting return of function -ostomy consult -[facility] consult Assessment & Plan (08/24/2020 10:40 AM EDT): PLAN: -patient s/p DLI -viable and functioning -ostomy consult -[facility] consult for new stoma HTN (hypertension)08/24/2020 Assessment & Plan (11/23/2020 1:14 PM EDT): Well controlled, on rx Assessment & Plan (11/23/2020 11:02 AM EDT): PLAN: -continue with home metoprolol as ordered -monitor vitals closely -parameters set Assessment & Plan (09/09/2020 8:19 AM EDT): PLAN: -continue with home metoprolol as ordered -monitor vitals closely -parameters set Assessment & Plan (09/08/2020 10:26 AM EDT): PLAN: -continue with home metoprolol as ordered -monitor vitals closely -parameters set Assessment & Plan (09/07/2020 8:42 AM EDT): PLAN: -continue with home metoprolol as ordered -monitor vitals closely -parameters set Assessment & Plan (09/06/2020 8:51 AM EDT): PLAN: -continue with home metoprolol as ordered -monitor vitals closely -parameters set Assessment & Plan (09/05/2020 8:37 AM EDT): PLAN: -continue with home metoprolol as ordered -monitor vitals closely -parameters set Assessment & Plan (09/04/2020 8:09 AM EDT): PLAN: -continue with home metoprolol as ordered -monitor vitals closely -parameters set Assessment & Plan (09/03/2020 10:04 AM EDT): PLAN: -continue with home metoprolol as ordered -monitor vitals closely -parameters set Assessment & Plan (09/02/2020 12:37 PM EDT): PLAN: -continue with home metoprolol as ordered -monitor vitals closely -parameters set Assessment & Plan (09/01/2020 12:18 PM EDT): PLAN: -continue with home metoprolol as ordered -monitor vitals closely -parameters set Assessment & Plan (08/30/2020 6:25 AM EDT): PLAN: -continue with home metoprolol as ordered -monitor vitals closely -parameters set Assessment & Plan (08/24/2020 10:40 AM EDT): PLAN: -continue with home metoprolol as ordered -parameters set -monitor vitals closely Multiple lung [id number]/15/2020Rectal wyxyms0603/10/2020 Assessment & Plan (11/26/2020 9:12 AM EDT): ASSESSMENT: -this is a 60 y/o male??with rectal cancer s/p neoadjuvant therapy who underwent diagnostic laparoscopy, laparoscopic mobilization of splenic flexure, laparoscopic-assisted low anterior resection of the rectum and sigmoid with??total mesorectal excision and high vascular tie, double stapled low end- to-end colorectal anastomosis, flexible sigmoidoscopy, and creation of diverting loop??ileostomy on08/30/20 -he now presents for ileostomy closure PLAN: -POD 1 anorectal exam under anesthesia and complete colonoscopy, closure of loop ileostomy by segmental resection of ileum and stapled nezr-wo-yluo anastomosis Assessment & Plan (09/09/2020 8:20 AM EDT): ASSESSMENT: -this is a 60 y/o male??with rectal cancer s/p neoadjuvant therapy who presents for preadmission prior to 08/30 LAR for rectal cancer PLAN: -now POD 10 diagnostic laparoscopy, laparoscopic mobilization of splenic flexure, laparoscopic-assisted low anterior resection of the rectum and sigmoid with total mesorectal excision and high vascular tie, double stapled low end-to-end colorectal anastomosis, flexible sigmoidoscopy, and creation of diverting loop ileostomy -continue with GIS diet + supplements as tolerated -ileostomy viable and functioning following stoma intubation on 09/08 -Oscar removed 09/04 and patient voiding -HHC consult; arranged per CM -ostomy consult Assessment & Plan (09/08/2020 10:27 AM EDT): ASSESSMENT: -this is a 60 y/o male??with rectal cancer s/p neoadjuvant therapy who presents for preadmission prior to 08/30 LAR for rectal cancer PLAN: -now POD 9 diagnostic laparoscopy, laparoscopic mobilization of splenic flexure, laparoscopic-assisted low anterior resection of the rectum and sigmoid with total mesorectal excision and high vascular tie, double stapled low end-to-end colorectal anastomosis, flexible sigmoidoscopy, and creation ofdiverting loop ileostomy -continue with GIS diet + supplements as tolerated; limiting PO at present given scant output/nausea this AM -ileostomy viable and functioning; small amount -will ask ostomy to intubate stoma today -KUB -Oscar removed 09/04 and patient voiding -HHC consult; arranged per CM -ostomy consult Assessment & Plan (09/07/2020 8:42 AM EDT): ASSESSMENT: -this is a 60 y/o male??with rectal cancer s/p neoadjuvant therapy who presents for preadmission prior to 08/30 LAR for rectal cancer PLAN: -now POD 8 diagnostic laparoscopy, laparoscopic mobilization of splenic flexure, laparoscopic-assisted low anterior resection of the rectum and sigmoid with total mesorectal excision and high vascular tie, double stapled low end-to-end colorectal anastomosis, flexible sigmoidoscopy, and creation ofdiverting loop ileostomy -continue with GIS diet + supplements -ileostomy viable and functioning; small amount -Oscar removed 09/04 and patient voiding -HHC consult; arranged per CM -ostomy consult Assessment & Plan (09/06/2020 8:51 AM EDT): ASSESSMENT: -this is a 60 y/o male??with rectal cancer s/p neoadjuvant therapy who presents for preadmission prior to 08/30 LAR for rectal cancer PLAN: -now POD 7 diagnostic laparoscopy, laparoscopic mobilization of splenic flexure, laparoscopic-assisted low anterior resection of the rectum and sigmoid with total mesorectal excision and high vascular tie, double stapled low end-to-end colorectal anastomosis, flexible sigmoidoscopy, and creation ofdiverting loop ileostomy -continue with GIS diet + supplements -ileostomy viable and functioning -Oscar removed 09/04 and patient voiding -HHC consult; arranged per CM -ostomy consult Assessment & Plan (09/04/2020 8:11 AM EDT): ASSESSMENT: -this is a 60 y/o male??with rectal cancer s/p neoadjuvant therapy who presents for preadmission prior to 08/30 LAR for rectal cancer PLAN: -now POD 4 diagnostic laparoscopy, laparoscopic mobilization of splenic flexure, laparoscopic-assisted low anterior resection of the rectum and sigmoid with total mesorectal excision and high vascular tie, double stapled low end-to-end colorectal anastomosis, flexible sigmoidoscopy, and creation ofdiverting loop ileostomy -start Clears today -ostomy functioning -leave Oscar in place -HHC consult -ostomy consult Assessment & Plan (09/03/2020 10:05 AM EDT): ASSESSMENT: -this is a 60 y/o male??with rectal cancer s/p neoadjuvant therapy who presents for preadmission prior to 08/30 LAR for rectal cancer PLAN: -now POD 4 diagnostic laparoscopy, laparoscopic mobilization of splenic flexure, laparoscopic-assisted low anterior resection of the rectum and sigmoid with total mesorectal excision and high vascular tie, double stapled low end-to-end colorectal anastomosis, flexible sigmoidoscopy, and creation ofdiverting loop ileostomy -maintain NPO/sips for now -ileostomy less congested; awaiting return of bowel function -leave Oscar in place -[facility] consult -ostomy consult Assessment & Plan (09/02/2020 12:38 PM EDT): ASSESSMENT: -this is a 60 y/o male??with rectal cancer s/p neoadjuvant therapy who presents for preadmission prior to 08/30 LAR for rectal cancer PLAN: -now POD 3 diagnostic laparoscopy, laparoscopic mobilization of splenic flexure, laparoscopic-assisted low anterior resection of the rectum and sigmoid with total mesorectal excision and high vascular tie, double stapled low end-to-end colorectal anastomosis, flexible sigmoidoscopy, and creation ofdiverting loop ileostomy -maintain NPO/sips for now -ileostomy less congested; awaiting return of bowel function -leave Oscar in place -[facility] consult -ostomy consult Assessment & Plan (09/01/2020 12:18 PM EDT): ASSESSMENT: -this is a 60 y/o male??with rectal cancer s/p neoadjuvant therapy who presents for preadmission prior to 08/30 LAR for rectal cancer PLAN: -now POD 2 diagnostic laparoscopy, laparoscopic mobilization of splenic flexure, laparoscopic-assisted low anterior resection of the rectum and sigmoid with total mesorectal excision and high vascular tie, double stapled low end-to-end colorectal anastomosis, flexible sigmoidoscopy, and creation ofdiverting loop ileostomy -maintain NPO/sips for now -ileostomy congested; awaiting return of bowel function -leave Oscar in place -[facility] consult -ostomy consult Assessment & Plan (08/31/2020 8:48 AM EDT): ASSESSMENT: -this is a 60 y/o male??with rectal cancer s/p neoadjuvant therapy who presents for preadmission prior to 08/30 LAR for rectal cancer PLAN: -now POD 1 diagnostic laparoscopy, laparoscopic mobilization of splenic flexure, laparoscopic-assisted low anterior resection of the rectum and sigmoid with total mesorectal excision and high vascular tie, double stapled low end-to-end colorectal anastomosis, flexible sigmoidoscopy, and creation ofdiverting loop ileostomy -maintain NPO/sips for now -ileostomy viable; awaiting return of bowel function -leave Oscar in place; remove stents today -[facility] consult -ostomy consult Assessment & Plan (08/29/2020 10:03 AM EDT): 60 year old male??with rectal cancer s/p neoadjuvant therapy who presents for preadmission prior to08/30 LAR for rectal cancer. Assessment: Cleared by cardiology yesterday. No active concerns, plan for OR tomorrow. PLAN: - Neuro: No current pain - Cardiac: HDS. Home metoprolol, ASA 81. Echo obtained, to be reviewed by cards. - Respiratory: Encourage IS, BPH - GI: Regular diet, NPO tonight prior to OR. Nursing staff to please assist with bowel prep beginning at 5pm TODAY. Written handout at bedside, orders placed. - Renal: Monitor UOP. Strict I/Os. Replete electrolytes prn. - Heme: No clinical evidence of bleeding - ID: None indicated - Endo: None indicated - Activity: Encourage OOB, ambulate - Prophylaxis: SCDs, SQH - Dispo: Admit to RNF, OR tomorrow Assessment & Plan (08/28/2020 5:31 PM EDT): 60 year old male??with rectal cancer s/p neoadjuvant therapy who presents for preadmission prior to08/30 LAR for rectal cancer. Assessment: No active concerns, awaiting clearance per cards PLAN: - Neuro: No current pain - Cardiac: HDS. Home metoprolol, ASA 81. Echocardiogram ordered. Cardiology consult, appreciate further recommendations for preoperative evaluation. - Respiratory: Encourage IS, BPH - GI: Regular diet, NPO Sunday prior to OR. - Renal: Monitor UOP. Strict I/Os. Replete electrolytes prn. 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 -he has completed HANNA and now presents for resection PLAN: -POD 1 -diet as tolerated -ileostomy viable and functioning -ostomy consult -[facility] consult Resolved Problems ProblemNoted DateDiagnosed DateResolved DatePersonal history of rectal cancer /KI (acute kidney injury)/ Assessment & Plan (09/09/2020 8:19 AM EDT): PLAN: -resolved -noted to have bump in Cr; now normal on AM labs -UA unremarkable -renal US done 09/01 -continue to trend Cr with labs -Oscar removed 09/04 and patient voiding Assessment & Plan (09/08/2020 10:26 AM EDT): PLAN: -resolved -noted to have bump in Cr; now normal on AM labs -UA unremarkable -renal US done 09/01 -continue to trend Cr with labs -Oscar removed 09/04 and patient voiding Assessment & Plan (09/07/2020 8:42 AM EDT): PLAN: -noted to have bump in Cr; now normal on AM labs -UA unremarkable -renal US done 09/01 -continue to trend Cr with labs -Oscar removed 09/04 and patient voiding Assessment & Plan (09/06/2020 8:50 AM EDT): PLAN: -noted to have bump in Cr; downtrending now 1.64 from 3.39 -UA unremarkable -renal US done 09/01 -continue to trend Cr with labs -Oscar removed 09/04 and patient voiding Assessment & Plan (09/05/2020 8:37 AM EDT): PLAN: -noted to have bump in Cr; downtrending now 1.88 from 3.39 -UA unremarkable -maintain Oscar for now -renal US done 09/01 -continue to trend Cr with labs -oscar removed 09/04 Assessment & Plan (09/04/2020 8:08 AM EDT): PLAN: -noted to have bump in Cr; downtrending now 1.88 from 3.39 -UA unremarkable -maintain Oscar for now -renal US done 09/01 -continue to trend Cr with labs -will remove oscar catheter at 12pm today Assessment & Plan (09/03/2020 10:04 AM EDT): PLAN: -noted to have bump in Cr; remains elevated -UA unremarkable -maintain Oscar for now -renal US done 09/01 -continue to trend Cr with labs -discussed with urology this AM, likely needs more fluids Assessment & Plan (09/02/2020 12:37 PM EDT): PLAN: -noted to have bump in Cr overnight; starting to down-trend -UA unremarkable -maintain Oscar for now -renal US done 09/01 -continue to trend Cr with labs Assessment & Plan (09/01/2020 12:17 PM EDT): PLAN: -noted to have bump in Cr overnight -UA pending -maintain Oscar for now -will obtain renal US -continue to trend Cr with labs Neuropathy due to chemotherapeutic drugThrombocytopenia, orekhpavh16 Encounters DateTypeDepartmentCare RqrbZtydbsosfnm18/26/2025[facility] [address] [place], [place] [id number] Malathi Massey, TRANSPORT CONDUCTOR.SENIOR COMPLIANCE ANALYST Refill Lesstxl2104/05/2025[facility] [address] [place] [id number] Malathi Massey, TRANSPORT CONDUCTOR.SENIOR COMPLIANCE ANALYST Refill Sijifwy4503/07/2025[facility] [address] [place] [id number] Malathi Massey, TRANSPORT CONDUCTOR.SENIOR COMPLIANCE ANALYST Refill Tyqjeaz6602/27/2025 9:00 AM EDTVisit (SP) Office Hematology/Oncology [address] [place] [address] [place] [address] Gui Lujan MD Malignant neoplasm of rectum (HCC) (Primary Dx); Multiple lung nodules; Malignant neoplasm of rectosigmoid junction (HCC); Encounter for follow-up examination after completed treatment for conditions other than malignant neoplasm; Weqboduxbqr52/17/0276Dizqrx60/10/2025 7:25 AM EDT - 02/20/2025 11:59 PM EDT Hospital Encounter Radiology Pet CT [address] [place] [address] Malignant neoplasm of rectum (HCC) [C20] Discharge Disposition: Home02/19/2025Travelfrom Last 3 Months Family History Medical HistoryRelationCommentsNo Known ProblemsBrotherNo Known ProblemsFather Lung cancerMaternal GrandfatherLung cancerMaternal GrandmotherNo Known Problems MotherNo Known ProblemsPaternal GrandfatherBreast CancerPaternal GrandmotherNo Known ProblemsSon 1No Known ProblemsSon 2No Known ProblemsSon 3Anesthesia ProblemsNo Family HistoryRelationStatusCommentsBrotherAliveFatherAliveMaternal GrandfatherDeceasedMaternal GrandmotherDeceasedMotherAlivePaternal Grandfather DeceasedPaternal GrandmotherDeceasedSon 1AliveSon 2AliveSon 3Alive Social History Tobacco UseTypesPacks/DayYears UsedDateSmoking Tobacco: NeverPassive Smoke Exposure: NeverSmokeless Tobacco: Never Tobacco Cessation:Counseling Given: Not Answered Alcohol UseStandard Drinks/WeekCommentsNever0 (1 standard drink = 0.6 oz pure alcohol)AUDIT-CAnswerDate RecordedQ1: How often do you have a drink containing alcohol?Never01/14/2020Average Number of DrinksNot on file01/14/2020Frequency of Binge DrinkingNot on file01/14/2020PHQ-2AnswerDate RecordedPHQ-2 score0 5Area Deprivation IndexAnswerDate RecordedNational Score (1-100), lower number is lower akye792903/10/2024State Score (1-10), lower number is lower risk4 4Data from: https://www.neighborhoodatlas.medicine.[facility].edu/. Last address used for enpr[address]kn[address] YOYSIGXE93/28/2024Sex and Gender Information ValueDate RecordedSex Assigned at OmuwwUczi94/28/2020 9:14 PM EDTLegal SexMale 04/14/2012 8:28 AM ESTGender FsriqvkmYrmx07/28/2020 9:14 PM EDTSexual KifffousqdmBrbqzers31/28/2020 9:14 PM EDT Last Filed Vital Signs Vital SignReadingTime TakenCommentsBlood Ddpiavde766/7202/27/2025 9:15 AM EDT Xrnui129602/27/2025 9:15 AM AETGqadlkwuhxb75.3 ??C (97.4 ??F)02/27/2025 9:15 AM EDTRespiratory Uoko5553 9:15 AM EDTOxygen Npzxicdecx54%02/27/2025 9:15 AM EDTInhaled Oxygen Concentration--Zkrglx37.4 kg (168 lb 6.9 oz)02/27/2025 9:15 AM SZPTlcvyr962.3 cm (5' 9 )10/22/2024 8:59 AM EDTBody Mass Index24.87 10/22/2024 8:59 AM EDT Plan of Treatment DateTypeDepartmentCare Team (Latest Contact Info)Bzuokruclcr63/17/2026 8:15 AM EDTAppointment Radiology Pet CT [address] [place] [place] [address] Ct CAP with contrast and lab09/04/2025 9:20 AM EDTVisit (SP) Office Hematology/Oncology [address] [place] [address] [place] [address] Gui Lujan MD [address] [place] [address] [place] [address] 6 month follow up for ct and lab resultsHealth MaintenanceDue DateLast Done CommentsAnnual PCP Team Chronic Disease Visit1979Anxiety Screening 1979Depression Hzlgoawaq40/06/1979HIV Egdgytcpw47/06/1979Hepatitis C Zjvsegwvh17/06/1979LDL Mawnmfndwdy66/06/1979DTaP,Tdap,Td Vaccine (1 - Tdap) 01/18/1980Lipid Wbipaoxgw96/06/1996CT Knsbugilwask24/06/2006Cologuard (FIT-DNA) 2006Fecal Occult Blood2006Pneumococcal Vaccine: 50+ (1 of 1 - PCV) 2011Shingrix Vaccine (1 of 2)2011Covid-19 Vaccine (3 - season)501/, 05/16/2021Influenza Vaccine (#1)2025 Cjvfbvwbjeipt00/26/221769/1Prostate Cancer Screening Uhoiotcbnd72/17/2027 2Diabetes Lhotlmazd78/02/2025, 02/20/2025, 09/01/2024, Additional history pbxyviQfofsyjfspu70/06/202806/03/2025, 2Colorectal Cancer Sboifurnc58/06/2028RSV Vaccine (1 - 1-dose 75+ series)01/18/2036 Medical Devices ImplantedTypeAreaManufacturerDevice IdentifierShelf Expiration DateModel / Serial / LotPort Powerport Isp Groshong 8fr Titanium Implantable Infusion Custom - [id number] Implanted:Qty: [facility]: ChestBARD PERIPHERAL CHWOXXLE68/[id number] / / [id number] Procedures Procedure NamePriorityDate/TimeAssociated DiagnosisCommentsCT CHEST W IVCON Cbixcos4302/20/2025 9:12 AM EDT Malignant neoplasm of rectum (HCC) Multiple lung nodules Elevated blood sugar CT ABD/PEL W GPIWRJjkoujv76/10/2025 9:12 AM EDT Malignant neoplasm of rectum (HCC) Multiple lung nodules Elevated blood sugar CEA IUMPgvyllr64/10/2025 7:26 AM EDT Malignant neoplasm of rectum (HCC) Multiple lung nodules Elevated blood sugar CBC + WGLFFqqzgxs76/10/2025 7:26 AM EDT Malignant neoplasm of rectum (HCC) Multiple lung nodules Elevated blood sugar COMPREHENSIVE METABOLIC RXURQXcwbeit28/10/2025 7:26 AM EDT Malignant neoplasm of rectum (HCC) Multiple lung nodules Elevated blood sugar HEMOGLOBIN B9ZNdmhpdm14/10/2025 7:26 AM EDT Malignant neoplasm of rectum (HCC) Multiple lung nodules Elevated blood sugar COLONOSCOPY OWDOVSFJUArytioa79/11/2025 9:04 AM EDT Personal history of colon cancer PSA VRCRMMRASJQcspefg28/17/2022 8:03 AM EDT Malignant neoplasm of rectum (HCC) Encounter for screening for malignant neoplasm of prostate TBKKLOMDACQEP48/26/2021 1:15 PM EDT from Last 3 Months or Most Recently Relevant to Health Maintenance Results * CT ABD/PEL W IVCON (02/20/2025 9:12 AM EDT)Anatomical RegionLateralityModality AbdomenNuclear Medicine, Nuclear MedicineSpecimen (Source)Anatomical Location / LateralityCollection Method / VolumeCollection TimeReceived Time02/20/2025 9:12 AM EDT Impressions 02/22/2025 1:35 PM EDT IMPRESSION: No evidence of intra-abdominal/pelvic metastases. ??No interval change since 09/01/24. Transcribe Date/Time: Feb 22 2025 ??1:16P Dictated by: NIMISHA WATERS MD This examination was interpreted and the report reviewed and electronically signed by: NIMISHA WATERS MD on Feb 22 2025 ??1:33PM ??EST Thank you for allowing us to participate in the care of your patient. Should there be any questions regarding this interpretation, please call [phone]. If you are unable to reach us at the number above, please feel free to contact [facility]Radiology at [phone]. Narrative 02/22/2025 1:35 PM EDT * * *Final Report* * * DATE OF EXAM: Feb 20 2025 ??9:12AM ?? NRC ?? 0530 ??- ??CT ABD/PEL W IVCON ??/ PROCEDURE REASON: multiple diagnoses ? * * * * Physician Interpretation * * * * RESULT: EXAMINATION: ??CT ABDOMEN AND PELVIS WITH IV CONTRAST CLINICAL HISTORY: Colorectal neoplasm TECHNIQUE: CT of the abdomen and pelvis was performed using standard technique, scanning from just above the dome of the diaphragm to the symphysis pubis. MQ: ??CTAP_3 Contrast: IV: ??100 ml of Omnipaque 350 Oral: ??500 ml of Omni 240 10-25ml diluted with water CT Radiation dose: Integrated Dose-length product (DLP) for this visit = ?? 739 mGy*cm. CT Dose Reduction Employed: Automated exposure control (AEC) COMPARISON: 09/01/24 RESULT: Liver: No mass. Biliary: No bile duct dilation. ??Gallbladder is unremarkable. Spleen: No mass. No splenomegaly. Pancreas: No mass or duct dilation. Adrenals: No mass. Kidneys: Subcentimeter lesions that are too small to characterize but likely benign. GI tract: No dilation or wall thickening. Surgical staple lines are noted in the rectosigmoid colon and small bowel in the right abdomen. Lymph nodes: No abdominal or pelvic lymphadenopathy. Mesentery/Peritoneum: No ascites or mass. Retroperitoneum: No mass. Vasculature: - Abdominal aorta and iliac arteries: Atherosclerotic calcifications without aneurysm. - Celiac and SMA: Patent without stenosis. - Portal venous system (SMV, splenic vein, portal vein and branches): Patent. - Hepatic veins: Patent. Pelvis: No mass, ascites or fluid collection. Urinary bladder is decompressed. ??Nonspecific urinary bladder wall thickening may be accentuated by underdistention. ??Prominent presacral soft tissue most likely related to postoperative change, stable. 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 ??No suspicious lytic or blastic osseous lesions. Lower thorax: A chest CT performed will be reported separately. Superintendent Plant (topogram) images: No additional findings. Procedure Note Provider, [facility] [place] - 02/22/2025 * * *Final Report* * * DATE OF EXAM: Feb 20 2025 9:12AM [facility] 0530 - CT ABD/PEL W IVCON / PROCEDURE REASON: multiple diagnoses * * * * Physician Interpretation * * * * RESULT: EXAMINATION: CT ABDOMEN AND PELVIS WITH IV CONTRAST CLINICAL HISTORY: Colorectal neoplasm TECHNIQUE: CT of the abdomen and pelvis was performed using standard technique, scanning from just above the dome of the diaphragm to the symphysis pubis. MQ: CTAP_3 Contrast: IV: 100 ml of Omnipaque 350 Oral: 500 ml of Omni 240 10-25ml diluted with water CT Radiation dose: Integrated Dose-length product (DLP) for this visit = 739 mGy*cm. CT Dose Reduction Employed: Automated exposure control (AEC) COMPARISON: 09/01/24 RESULT: Liver: No mass. Biliary: No bile duct dilation. Gallbladder is unremarkable. Spleen: No mass. No splenomegaly. Pancreas: No mass or duct dilation. Adrenals: No mass. Kidneys: Subcentimeter lesions that are too small to characterize but likely benign. GI tract: No dilation or wall thickening. Surgical staple lines are noted in the rectosigmoid colon and small bowel in the right abdomen. Lymph nodes: No abdominal or pelvic lymphadenopathy. Mesentery/Peritoneum: No ascites or mass. Retroperitoneum: No mass. Vasculature: - Abdominal aorta and iliac arteries: Atherosclerotic calcifications without aneurysm. - Celiac and SMA: Patent without stenosis. - Portal venous system (SMV, splenic vein, portal vein and branches): Patent. - Hepatic veins: Patent. Pelvis: No mass, ascites or fluid collection. Urinary bladder is decompressed. Nonspecific urinary bladder wall thickening may be accentuated by underdistention. Prominent presacral soft tissue most likely related to postoperative change, stable. 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 No suspicious lytic or blastic osseouslesions. Lower thorax: A chest CT performed will be reported separately. Superintendent Plant (topogram) images: No additional findings. IMPRESSION IMPRESSION: No evidence of intra-abdominal/pelvic metastases. No interval change since 09/01/24. Transcribe Date/Time: Feb 22 2025 1:16P Dictated by: NIMISHA WATERS MD This examination was interpreted and the report reviewed and electronically signed by: NIMISHA WATERS MD on Feb 22 2025 1:33PM EST Thank you for allowing us to participate in the care of your patient. Should there be any questions regarding this interpretation, please call [phone]. If you are unable to reach us at the number above, please feel free to contact [facility] at [phone]. Authorizing ProviderResult TypeResult StatusVivek Abhyankar MDCT-PAMAFinal Result * CT CHEST W IVCON (02/20/2025 9:12 AM EDT)Anatomical RegionLateralityModality ChestNuclear Medicine, Nuclear MedicineSpecimen (Source)Anatomical Location / LateralityCollection Method / VolumeCollection TimeReceived Time02/20/2025 9:12 AM EDT Impressions 02/22/2025 1:35 PM EDT IMPRESSION: 1. ??No evidence of intrathoracic metastases. 2. ??No interval change since 09/01/24.. Transcribe Date/Time: Feb 22 2025 12:41P Dictated by: NIMISHA WATERS MD This examination was interpreted and the report reviewed and electronically signed by: NIMISHA WATERS MD on Feb 22 2025 ??1:33PM ??EST Thank you for allowing us to participate in the care of your patient. Should there be any questions regarding this interpretation, please call [phone]. If you are unable to reach us at the number above, please feel free to contact [facility] at [phone]. Narrative 02/22/2025 1:35 PM EDT * * *Final Report* * * DATE OF EXAM: Feb 20 2025 ??9:12AM ?? NRC ?? 0539 ??- ??CT CHEST W IVCON ??/ PROCEDURE REASON: multiple diagnoses ? * * * * Physician Interpretation * * * * RESULT: EXAMINATION: ??CHEST CT WITH CONTRAST CLINICAL HISTORY: Rectal cancer, monitor Technique: ??Spiral CT acquisition of the chest from the thoracic inlet to the upper abdomen following IV contrast. MQ: ??CTCW_6 Contrast: ??100 mL Omnipaque [address] Radiation dose: Integrated Dose-length product (DLP) for this visit = ?? 739 mGy*cm CT Dose Reduction Employed: Automated exposure control (AEC) Comparison: 09/01/24, 02/27/22 RESULT: Limitations: ??None. Lines, tubes, and devices: ??None. Lung parenchyma and airways: Streaky scarring/discoid atelectasis is noted in the bilateral lung riley, decreased since 09/01/24. Multiple subcentimeter nodular opacities measuring up to 7 mm, stable since 02/27/22 and 3 year stability favors a benign etiology. ??For example: Right upper lobe (4:48, 50, 54) Right lower lobe (4: 105, 107) Left upper lobe (4: 38, 44, 136) No new airspace opacities. ??The central airways are patent. Pleural space: ??No pleural effusion. ??No pleural thickening. Lower neck, lymph nodes, and mediastinum: ??The imaged thyroid gland is normal. ??No lymphadenopathy in the supraclavicular, axillary, mediastinal, or hilar regions. Heart, pericardium, and thoracic vessels: ??The thoracic aorta and main pulmonary artery are normal in caliber. The cardiac chambers are normal in size. ??Atherosclerotic coronary artery calcifications are noted. No pericardial effusion or thickening. Bones and soft tissues: ??No new osseous abnormalities. Upper abdomen: ??Please refer to the abdomen CT scan report for the abdomen findings. Superintendent Plant (topogram) images: No additional findings. Procedure Note Provider, [facility] - 02/22/2025 * * *Final Report* * * DATE OF EXAM: Feb 20 2025 9:12AM [facility] 0539 - CT CHEST W IVCON / PROCEDURE REASON: multiple diagnoses * * * * Physician Interpretation * * * * RESULT: EXAMINATION: CHEST CT WITH CONTRAST CLINICAL HISTORY: Rectal cancer, monitor Technique: Spiral CT acquisition of the chest from the thoracic inlet to the upper abdomen following IV contrast. MQ: CTCW_6 Contrast: 100 mL Omnipaque [address] Radiation dose: Integrated Dose-length product (DLP) for this visit = 739 mGy*cm CT Dose Reduction Employed: Automated exposure control (AEC) Comparison: 09/01/24, 02/27/22 RESULT: Limitations: None. Lines, tubes, and devices: None. Lung parenchyma and airways: Streaky scarring/discoid atelectasis is noted in the bilateral lung riley, decreased since 09/01/24. Multiple subcentimeter nodular opacities measuring up to 7 mm, stable since 02/27/22 and 3 year stability favors a benign etiology. For example: Right upper lobe (4:48, 50, 54) Right lower lobe (4: 105, 107) Left upper lobe (4: 38, 44, 136) No new airspace opacities. The central airways are patent. Pleural space: No pleural effusion. No pleural thickening. Lower neck, lymph nodes, and mediastinum: The imaged thyroid gland is normal. No lymphadenopathy in the supraclavicular, axillary, mediastinal, or hilar regions. Heart, pericardium, and thoracic vessels: The thoracic aorta and main pulmonary artery are normal in caliber. The cardiac chambers are normal in size. Atherosclerotic coronary artery calcifications are noted. No pericardial effusion or thickening. Bones and soft tissues: No new osseous abnormalities. Upper abdomen: Please refer to the abdomen CT scan report for the abdomen findings. Superintendent Plant (topogram) images: No additional findings. IMPRESSION IMPRESSION: 1. No evidence of intrathoracic metastases. 2. No interval change since 09/01/24.. Transcribe Date/Time: Feb 22 2025 12:41P Dictated by: NIMISHA WATERS MD This examination was interpreted and the report reviewed and electronically signed by: NIMISHA WATERS MD on Feb 22 2025 1:33PM EST Thank you for allowing us to participate in the care of your patient. Should there be any questions regarding this interpretation, please call [phone]. If you are unable to reach us at the number above, please feel free to contact [facility] at [phone]. Authorizing ProviderResult TypeResult StatusVivek Abhyankar MDCT-PAMAFinal Result * (ABNORMAL) HEMOGLOBIN A1C (02/20/2025 7:26 AM EDT)ComponentValueRef RangeTest MethodAnalysis TimePerformed AtPathologist SignatureHemoglobin A1C5.8(H)4.3 - 5.6 %02/20/2025 6:57 PM [facility] LABComment:[place] Diabetes Association guidelines indicate that patients with HgbA1c in the range 5.7-6.4% are at increased risk for development of diabetes, and intervention by lifestyle modification may be beneficial. HgbA1c greater or equal to 6.5% is considered diagnostic of diabetes.Estimated Average Glucose 120mg/dL02/20/2025 6:57 PM [facility] LABComment:eAG: (Estimated average glucose) is a calculated value from HgbA1c and is underwriting sales representative of the average blood glucose level in the last 2-3 month period.Specimen (Source)Anatomical Location / LateralityCollection Method / VolumeCollection TimeReceived TimeBloodBLOOD SPECIMEN / UnknownVenipuncture / Jensbdc2302/20/2025 7:26 AM EDT1 7:34 AM EDT Narrative Authorizing ProviderResult TypeResult StatusGui Lujan MDLABORATORYFinal ResultPerforming OrganizationAddressCity/State/ZIP CodePhone Number [facility] [address] [place] [address], * (ABNORMAL) COMPREHENSIVE METABOLIC PANEL (02/20/2025 7:26 AM EDT)Component ValueRef RangeTest MethodAnalysis TimePerformed AtPathologist Signature Protein, Total6.86.3 - 8.0 g/dL02/20/2025 8:02 AM [facility] LABAlbumin4.33.9 - 4.9 g/dL02/20/2025 8:02 AM [facility] LABCalcium, Total9.38.5 - 10.2 mg/dL02/20/2025 8:02 AM [facility] LABBilirubin, Total0.50.2 - 1.3 mg/dL 02/20/2025 8:02 AM [facility] LABAlkaline Xdrykngwzbo7469 - 113 U/L1 8:02 AM [facility] WUOEQZ2682 - 40 U/L1 8:02 [address] [facility] HVJYZK7383 - 54 U/L1 8:02 AM [facility] HVONnqiico782(H)74 - 99 mg/dL02/20/2025 8:02 AM [facility] LABComment: The [place] Diabetes Association (ADA) provides guidance for cutoff values for fasting glucose andrandom glucose. The ADA defines fasting as no caloric intake for at least 8 hours. Fasting plasma glucose results between 100 to 125 mg/dL indicate increased risk for diabetes (prediabetes). Fasting plasma glucose results greater than or equal to 126 mg/dL meet the criteria for diagnosis of diabetes. In the absence of unequivocal hyperglycemia, results should be confirmed by repeat testing. In a patient with classic symptoms of hyperglycemia or hyperglycemic crisis, random plasma glucose results greater than or equal to 200 mg/dL meet the criteria for diagnosis of diabetes. Reference: Standards of Medical Care in Diabetes 2016, [place] [employer]. Diabetes Care. 2016.39(Suppl 1). ECP399 - 24 mg/dL02/20/2025 8:02 AM [facility] Creatinine1.140.73 - 1.22 mg/dL02/20/2025 8:02 AM [facility] EONNxwqlw185400 - 144 mmol/L1 8:02 AM [facility] LABPotassium4.23.7 - 5.1 mmol/L1 8:02 AM [facility] AAXSkpknruo75315 - 107 mmol/L1 8:02 AM EDT [facility] MIWCP42807 - 30 mmol/L1 8:02 AM T [facility] LABAnion Mqm695 - 15 mmol/L1 8:02 AM [facility] LABEstimated Glomerular Filtration Rate72 >=60 mL/min/1.73m 02/20/2025 8:02 AM [facility] LABComment:Estimated Glomerular Filtration Rate (eGFR) is calculated using the 2020 CKD-EPI creatinine equation. This equation utilizes serum creatinine, sex, and age as parameters. The creatinine assay has traceable calibration to isotope dilution- mass spectrometry. Refer to KDIGO guidelines for clinical interpretation. In patients with unstable renal function, e.g. those with acute kidney injury, the eGFRmay not accurately reflect actual GFR.Specimen (Source)Anatomical Location / LateralityCollection Method / VolumeCollection TimeReceived TimeBloodBLOOD SPECIMEN / UnknownVenipuncture / Brufinm9302/20/2025 7:26 AM EDT1 7:34 AM EDT Narrative Authorizing ProviderResult TypeResult StatusVivejessica Lujan MDLABORATORYFinal ResultPerforming OrganizationAddressCity/State/ZIP CodePhone Number [facility] [address] [place] [address] * CARCINOEMBRYONIC ANTIGEN (02/20/2025 7:26 AM EDT)ComponentValueRef RangeTest MethodAnalysis TimePerformed AtPathologist SignatureCEA0.6<=2.9 ng/mL 02/23/2025 11:57 AM [facility]HO[facility] LABComment: Carcinoembryonic antigen test is used as an aid in monitoring response to treatment or recurrence in patients with established colorectal, breast, lung, prostatic, pancreatic, and ovarian carcinomas.Clinical correlation is required. The Carcinoembryonic antigen test was performed using the [employer] DXI paramagnetic particle chemiluminescent immunoassay method. Results obtained with different assay methods or kits cannot be used interchangeably. Specimen (Source)Anatomical Location / LateralityCollection Method / Volume Collection TimeReceived TimeBloodBLOOD SPECIMEN / UnknownVenipuncture / Unknown 02/20/2025 7:26 AM EDT1 7:34 AM EDT Narrative Authorizing ProviderResult TypeResult StatusVivejessica Trinidadmarquesniles CROCKETTLABORATORYFinal ResultPerforming OrganizationAddressCity/State/ZIP CodePhone Number [facility] [address] [address], * (ABNORMAL) COMPLETE BLOOD COUNT AND DIFFERENTIAL (02/20/2025 7:26 AM EDT) ComponentValueRef RangeTest MethodAnalysis TimePerformed AtPathologist SignatureWBC4.143.70 - 11.00 k/uL02/20/2025 7:37 AM [facility] LABRBC4.794.20 - 6.00 m/uL02/20/2025 7:37 AM [facility] DFNElsoqamgoh87.613.0 - 17.0 g/dL02/20/2025 7:37 AM EDT [facility] PXPJsejmhyopz97.939.0 - 51.0 %02/20/2025 7:37 AM [facility] TQPQCJ12.580.0 - 100.0 fL 02/20/2025 7:37 [facility] WHDAEH75.426.0 - 34.0 pg02/20/2025 7:37 [facility] MECFPBQ23.530.5 - 36.0 g/dL02/20/2025 7:37 [facility] LABRDW-CV15.2 (H)11.5 - 15.0 %02/20/2025 7:37 AM [facility] Platelet [id number] - 400 k/uL02/20/2025 7:37 AM [facility] LABMPV9.29.0 - 12.7 fL02/20/2025 7:37 AM [facility] LABNeutrophils %52.5%02/20/2025 7:37 AM [facility] LABAbs Neut2.171.45 - 7.50 k/uL02/20/2025 7:37 AM [facility] LABLymphocytes %28.7%02/20/2025 7:37 AM [facility] LABAbs Lymph1.191.00 - 4.00 k/uL02/20/2025 7:37 AM EDT [facility] LABMonocytes %11.8%02/20/2025 7:37 AM EDT [facility] LABAbs Mono0.49<0.87 k/uL02/20/2025 7:37 [facility] LABEosinophils %5.8%02/20/2025 7:37 AM [facility] LABAbs Eosin0.24<0.46 k/uL02/20/2025 7:37 AM [facility] LABBasophils %1.0%02/20/2025 7:37 AM [facility] LABAbs Baso0.04<0.11 k/uL02/20/2025 7:37 AM [facility] LABImmature Granulocytes %0.2% 02/20/2025 7:37 AM [facility] LABAbs Immature Gran <0.03<0.10 k/uL02/20/2025 7:37 AM [facility] LABNRBC 0.0/100 WBC02/20/2025 7:37 AM [facility] LABAbsolute nRBC<0.01<0.01 k/uL02/20/2025 7:37 AM [facility] LABDiff RtlgPmtf25/10/2025 7:37 AM [facility] Specimen (Source)Anatomical Location / LateralityCollection Method / Volume Collection TimeReceived TimeBloodBLOOD SPECIMEN / UnknownVenipuncture / Pcfikhv3602/20/2025 7:26 AM EDT1 7:34 AM EDT Narrative Authorizing ProviderResult TypeResult StatusGui Lujan MDLABORATORYFinal ResultPerforming OrganizationAddressCity/State/ZIP CodePhone Number [facility] [address] [place] [address] * COLONOSCOPY SCREENING (10/22/2024 9:04 AM EDT)Anatomical RegionLaterality ModalityOtherSpecimen (Source)Anatomical Location / LateralityCollection Method / VolumeCollection TimeReceived Time10/22/2024 9:04 AM EDT Narrative 10/22/2024 9:35 AM EDT [facility] Gastrointestinal Endoscopy Patient Name: Good Donahue Procedure Date: 10/22/2024 9:04 AM Date of : 1960 Admit Type: Outpatient Age: 64 Gender: Male Note Status: Finalized Attending MD: Sánchez Rojas Jr , , [id number] Procedure: ? Colonoscopy Indications: ? 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 radiation, segmental rectosigmoid resection with ? reanastomosis in 2020 Providers: ? Sánchez Rojas Jr DO Patient Profile: ? This is a 64 year old male. Refer to note in ? patient chart for documentation of history and ? physical. Last Colonoscopy: 3 years ago. Referring Physician: ?? Sánchez Rojas Jr DO (Referring MD) Medicines: ? Propofol per Anesthesia, Monitored Anesthesia Care Complications: ? No immediate complications. Requesting Provider: ?? Procedure: ? Pre-Anesthesia Assessment: ? - Prior to the procedure, a History and Physical ? was performed, and patient medications and ? allergies were reviewed. The patient's tolerance of ? previous anesthesia was also reviewed. The risks ? and benefits of the procedure and the sedation ? options and risks were discussed with the patient. ? All questions were answered, and informed consent ? was obtained. Prior Anticoagulants: The patient has ? taken no anticoagulant or antiplatelet agents. ASA ? Grade Assessment: II - A patient with mild systemic ? disease. After reviewing the risks and benefits, ? the patient was deemed in satisfactory condition to ? undergo the procedure. ? After I obtained informed consent, the scope was ? passed under direct vision. Throughout the ? procedure, the patient's blood pressure, pulse, and ? oxygen saturations were monitored continuously. The ? Colonoscope was introduced through the anus and ? advanced to the terminal ileum, with identification ? of the appendiceal orifice and IC valve. The ? colonoscopy was performed without difficulty. The ? patient tolerated the procedure well. The quality ? of the bowel preparation was excellent. The entire ? colon was well visualized. The terminal ileum, ? ileocecal valve, appendiceal orifice, and rectum ? were photographed. Scope Withdrawal Time: 0 hours 6 minutes 57 seconds Total Procedure Duration: 0 hours 9 minutes 41 seconds Findings: ? The digital rectal exam was normal. ? There was evidence of a previous loop ileostomy found in the terminal ? ileum. This was characterized by healthy appearing mucosa. This was ? traversed. ? There was evidence of a prior end-to-end colo-rectal anastomosis in ? the recto-sigmoid colon consistent with segmental rectosigmoid ? resection. This was patent and was characterized by healthy appearing ? mucosa. The anastomosis was traversed. Moderate Sedation: ? MAC anesthesia was administered by the anesthesia team. Impression: ?- Evidence of previous loop ileostomy, ? characterized by healthy appearing mucosa. ? - Patent end-to-end colo-rectal anastomosis ? consistent with segmental rectosigmoid resection, ? characterized by healthy appearing mucosa. ? - No specimens collected. Recommendation: ?- Discharge patient to home. ? - Resume regular diet. ? - Continue present medications. ? - Repeat colonoscopy in 3 - 5 years for ? surveillance. ? - Patient has a contact number available for ? emergencies. The signs and symptoms of potential ? delayed complications were discussed with the ? patient. Return to normal activities tomorrow. ? Written discharge instructions were provided to the ? patient. Procedure Code(s): ? --- Professional --- ? G0105, Colorectal cancer screening; colonoscopy on ? individual at high risk Diagnosis Code(s): ? --- Professional --- ? Z12.11, Encounter for screening for malignant ? neoplasm of colon ? Z85.038, Personal history of other malignant ? neoplasm of large intestine ? Z98.0, Intestinal bypass and anastomosis status CPT copyright 202 [employer]. All rights reserved. The codes documented in this report are preliminary and upon certified coder review may be revised to meet current compliance requirements. Attending Participation: ? I personally performed the entire procedure. MD Sánchez Mendes Jr, DO 10/22/2024 9:32:38 AM This report has been signed electronically by Sánchez Rojas Jr, DO Number of Addenda: 0 Note Initiated On: 10/22/2024 9:04 AM Procedure Start: 9:13:45 AM Procedure End: 9:23:26 AM Authorizing ProviderResult TypeResult StatusDavibety Rojas Jr., DODIGESTIVE DISEASEFinal Result * PSA/PROSTSPECAG DIAG (02/27/2022 8:03 AM EDT)ComponentValueRef RangeTest MethodAnalysis TimePerformed AtPathologist SignaturePSA0.31<2.60 ng/mL 02/27/2022 10:34 PM EDTCCOSHOCTON REGION[facility] LABComment:Total PSA test methodology used is the Electrochemiluminescence Immunoassay by [employer]. Total PSA values by differing methodologies cannot be interchanged.Specimen (Source)Anatomical Location / LateralityCollection Method / VolumeCollection TimeReceived TimeBloodBLOOD SPECIMEN / Unknown Venipuncture / Vtlhjpg8402/27/2022 8:03 AM EDT1 8:10 AM EDT Narrative Authorizing ProviderResult TypeResult StatusVivejessica Lujan MDLABORATORYFinal ResultPerforming OrganizationAddressCity/State/[facility] CodePhone Number [facility] [address] * SIGMOIDOSCOPY (08/06/2020 1:15 PM EDT)ComponentValueRef RangeTest Method Analysis TimePerformed AtPathologist JvwdxbfgmUwljmhfakxhmvZ54 Gastrointestinal Endoscopy Patient Name: Good Donahue Procedure Date: 08/06/2020 1:15 PM Date of : 1960 Admit Type: Ambulatory Age: 60 Gender: Male Note Status: Finalized Attending MD: Jacky Powell MD Procedure: ?Flexible Sigmoidoscopy Indications: ?High risk colon cancer surveillance: Personal ?history of rectal cancer Providers: ?Jacky Powell MD Patient Profile: ?This is a 60 year old male. Refer to note in patient ?chart for documentation of history and physical. Referring Physician: Medicines: ?None Complications: ?No immediate complications. Requesting Provider: Procedure: ?Pre-Anesthesia Assessment: ?- After reviewing the risks and benefits, the ?patient was deemed in satisfactory condition to ?undergo the procedure. ?- ASA Grade Assessment: II - A patient with mild ?systemic disease. ?- After reviewing the risks and benefits, the ?patient was deemed in satisfactory condition to ?undergo the procedure in an ambulatory setting. ?- Prior to the procedure, no anesthesia or sedation ?was planned. ?After obtaining informed consent, the scope was ?passed under direct vision. The Scope was introduced ?through the anus and advanced to the rectosigmoid ?junction. The flexible sigmoidoscopy was ?accomplished without difficulty. The patient ?tolerated the procedure well. The quality of the ?bowel preparation was [Prep Quality]. The flexible ?sigmoidoscopy was accomplished with ease. The ?quality of the bowel preparation was excellent. Moderate Sedation: ? No sedation was administered for this procedure. ? No sedation was administered for this procedure. Findings: ? The digital rectal exam was normal. Pertinent negatives include ? normal sphincter tone, no palpable rectal lesions, normal prostate ? (size, shape, and consistency) and no anal lesion or abnormality. ? The perianal examination was normal. ? A moderate amount of semi-solid stool was found in the distal sigmoid ? colon, interfering with visualization. ? A 10 mm scar was found in the proximal rectum. There was residual ? polypoid tissue. Adjacent mucosal findings include flattening. ? Estimated blood loss: none. Area was tattooed with an injection of 1 ? mL of Pema ink. Estimated blood loss: none. Impression: ? - Stool in the distal sigmoid colon. ?- Scar in the proximal rectum. Tattooed. ?- No specimens collected. ?- Near complete response Estimated Blood Loss: Estimated blood loss was minimal. Recommendation: ? - Repeat flexible sigmoidoscopy in 6 months for ?surveillance. ?- Patient has a contact number available for ?emergencies. The signs and symptoms of potential ?delayed complications were discussed with the ?patient. Return to normal activities tomorrow. ?Written discharge instructions were provided to the ?patient. ?- Repeat flexible sigmoidoscopy in 3 months for ?surveillance based on personal history of colon ?cancer. Attending Participation: ? I personally performed the entire procedure. Scope In: Scope Out: MD Jacky Carlson MD 08/06/2020 2:29:33 PM This report has been signed electronically. Number of Addenda: 0 Note Initiated On: 08/06/2020 1:15 PMDIGESTIVE DISEASE INSTITUTEAnatomical Region LateralityModalityOtherSpecimen (Source)Anatomical Location / Laterality Collection Method / VolumeCollection TimeReceived Time08/06/2020 1:15 PM EDT Narrative Authorizing ProviderResult TypeResult StatusCcf ProviderDIGESTIVE DISEASEFinal Result from Last 3 Months or Most Recently Relevant to Health Maintenance Insurance Advance Directives TypeDate RecordedPatient RepresentativeExplanationAdvance Directive(s)04/18/2023 6:05 PM Care Teams Team MemberRelationshipSpecialtyStart DateEnd Date Chase Schultz MD [address] [place] [address] PCP - GeneralFamily Vdewydss27/18/23 Domingo Sarah(Historical) Referring11/11/19 Gui Lujan MD [address] [place] [id number] PhysicianHematology/Oncology01/05/20 Shanita Kaplan APRN.SENIOR COMPLIANCE ANALYST [address] [place] [id number] Nurse PractitionerHematology/Oncology01/05/20 Devyn Hair MD [address] [place] [id number] PhysicianRadiation Oncology01/05/20 Sylvia Morris, SENIOR COMPLIANCE ANALYST [facility] [place] [address] ReferringFamily Medicine12/07/22 Tom Umanzor MD [address] [place] [address] Hfjesndtks72/4/23 Alesia Trevizo MD [address] [place] [address] Primary Staff DkycttcmwTinfdctocr79/6/23
--- OUTSIDE RECORDS SUMMARY | 2025-04-12 06:00 | XMS_ITS ---
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 Name Role Phone Domingo Sarah(Historical) Unavailable Candice vailable Gui Lujan MD Unavailable [phone] Shanita Kaplan APRN.[employer] Unavailable [phone] Devyn Hair MD Unavailable Sylvia Morris [employer] Unavailable [phone] Chase Schultz MD Primary Care Provider [phone] Tom Umanzor MD Unavailable [phone] Alesia Trevizo MD Unavailable [phone] Active Problems ProblemNoted DateDiagnosed DateChest pain of uncertain gtppjxmo08/07/2023 Vwfouyixq45/07/2023ttention to ecityjief81/13/2021 Assessment & Plan (11/26/2020 9:13 AM EDT): [...] by segmental resection of ileum and stapled mhre-sf-iedn anastomosis -okay for GIS diet -passing flatus, no BM yet -[facility] paste ordered -no needs home going Hiatal thfblc3811/23/2020Malnutrition of moderate nrfoof1709/03/2020 Assessment & Plan (09/09/2020 8:20 AM EDT): [...] EDT): PLAN: -encourage GIS diet + supplements Akzifhiwrzumxrxn86/19/2021 Assessment & Plan (11/26/2020 9:12 AM EDT): [...] & Plan (11/23/2020 1:13 PM EDT): S/p TN 10/2018, had stent x1 Current on ASA 81 mg, metoprolol, followed by local cardiology Last office visit 10/21/20 in [place] No CP with jogging short distance or stairs No recent stress test but has EKG today and Echo 08/29/20 in [facility] Assessment & Plan (11/23/2020 11:02 AM EDT): ASSESSMENT: -patient with history of TN in October 2018 requiring PCI/stenting -then had + stress test requiring further intervention (PCI) in October 2019 PLAN: -continue with close cardiology F/U Assessment & Plan (09/09/2020 8:19 AM EDT): ASSESSMENT: -patient with history of TN in October 2018 requiring PCI/stenting -then had + stress test requiring further intervention (PCI) in October 2019 PLAN: -admitted for pre-operative clearance prior to planned OR -cardiology consulted; appreciate recommendations -underwent ECHO; EF ~50% -will need to discuss with home risk prevention engineer statin therapy Assessment & Plan (09/08/2020 10:26 AM EDT): ASSESSMENT: -patient with history of TN in October 2018 requiring PCI/stenting -then had + stress test requiring further intervention (PCI) in October 2019 PLAN: -admitted for pre-operative clearance prior to planned OR -cardiology consulted; appreciate recommendations -underwent ECHO; EF ~50% -will need to discuss with home risk prevention engineer statin therapy Assessment & Plan (09/07/2020 8:42 AM EDT): ASSESSMENT: -patient with history of TN in October 2018 requiring PCI/stenting -then had + stress test requiring further intervention (PCI) in October 2019 PLAN: -admitted for pre-operative clearance prior to planned OR -cardiology consulted; appreciate recommendations -underwent ECHO; EF ~50% -will need to discuss with home risk prevention engineer statin therapy Assessment & Plan (09/06/2020 8:50 AM EDT): ASSESSMENT: -patient with history of TN in October 2018 requiring PCI/stenting -then had + stress test requiring further intervention (PCI) in October 2019 PLAN: -admitted for pre-operative clearance prior to planned OR -cardiology consulted; appreciate recommendations -underwent ECHO; EF ~50% -will need to discuss with home risk prevention engineer statin therapy Assessment & Plan (09/05/2020 8:37 AM EDT): ASSESSMENT: -patient with history of TN in October 2018 requiring PCI/stenting -then had + stress test requiring further intervention (PCI) in October 2019 PLAN: -admitted for pre-operative clearance prior to planned OR -cardiology consulted; appreciate recommendations -underwent ECHO; EF ~50% -will need to discuss with home risk prevention engineer statin therapy Assessment & Plan (09/04/2020 8:09 AM EDT): ASSESSMENT: -patient with history of TN in October 2018 requiring PCI/stenting -then had + stress test requiring further intervention (PCI) in October 2019 PLAN: -admitted for pre-operative clearance prior to planned OR -cardiology consulted; appreciate recommendations -underwent ECHO; EF ~50% -will need to discuss with home risk prevention engineer statin therapy Assessment & Plan (09/03/2020 10:04 AM EDT): ASSESSMENT: -patient with history of TN in October 2018 requiring PCI/stenting -then had + stress test requiring further intervention (PCI) in October 2019 PLAN: -admitted for pre-operative clearance prior to planned OR -cardiology consulted; appreciate recommendations -underwent ECHO; EF ~50% -will need to discuss with home risk prevention engineer statin therapy Assessment & Plan (09/02/2020 12:37 PM EDT): ASSESSMENT: -patient with history of TN in October 2018 requiring PCI/stenting -then had + stress test requiring further intervention (PCI) in October 2019 PLAN: -admitted for pre-operative clearance prior to planned OR -cardiology consulted; appreciate recommendations -underwent ECHO; EF ~50% -will need to discuss with home risk prevention engineer statin therapy Assessment & Plan (09/01/2020 12:17 PM EDT): ASSESSMENT: -patient with history of TN in October 2018 requiring PCI/stenting -then had + stress test requiring further intervention (PCI) in October 2019 PLAN: -admitted for pre-operative clearance prior to planned OR -cardiology consulted; appreciate recommendations -underwent ECHO; EF ~50% -will need to discuss with home risk prevention engineer statin therapy Assessment & Plan (08/30/2020 6:23 AM EDT): ASSESSMENT: -patient with history of TN in October 2018 requiring PCI/stenting -then had + stress test requiring further intervention (PCI) in October 2019 PLAN: -admitted for pre-operative clearance prior to planned OR -cardiology consulted; appreciate recommendations -underwent ECHO; EF ~50% -will need to discuss with home risk prevention engineer statin therapy Acute post-operative pain08/24/2020 Assessment & [...] functioning following stoma intubation 09/08 -ostomy consult -[facility] consult Assessment & Plan (09/08/2020 10:26 AM EDT): PLAN: -patient s/p DLI -viable and functioning; small volume -ostomy consult; will ask team to intubate stoma today -[facility] consult Assessment & Plan (09/07/2020 8:42 AM EDT): PLAN: -patient s/p DLI -viable and functioning; small volume -ostomy consult -[facility] consult Assessment & Plan (09/06/2020 8:51 AM EDT): PLAN: -patient s/p DLI -viable and functioning -ostomy consult -[facility] consult Assessment & Plan (09/05/2020 8:37 AM EDT): PLAN: -patient s/p DLI -ostomy now functioning -ostomy consult -[facility] consult Assessment & Plan (09/04/2020 8:10 AM EDT): PLAN: -patient s/p DLI -ostomy now functioning -ostomy consult -[facility] consult Assessment & Plan (09/03/2020 10:05 AM EDT): PLAN: -patient s/p DLI -appears less congested; awaiting return of function -ostomy consult -[facility] consult Assessment & Plan (09/02/2020 12:37 PM EDT): PLAN: -patient s/p DLI -appears less congested this AM; awaiting return of function -ostomy consult -[facility] consult Assessment & Plan (09/01/2020 12:18 PM EDT): PLAN: -patient s/p DLI -appears congested this AM; awaiting return of function -ostomy consult -[facility] consult Assessment & Plan (08/31/2020 8:48 AM EDT): PLAN: -patient s/p DLI -viable; awaiting return of function -ostomy consult -[facility] consult Assessment & Plan (08/24/2020 10:40 AM EDT): PLAN: -patient s/p DLI -viable and functioning -ostomy consult -[facility] consult for new stoma HTN (hypertension)08/24/2020 Assessment [...] -parameters set -monitor vitals closely Multiple lung eryiwhw6403/15/2020Rectal elrubd8803/10/2020 Assessment & Plan (11/26/2020 9:12 AM EDT): [...] by segmental resection of ileum and stapled usyd-ov-zrrr anastomosis Assessment & Plan (09/09/2020 8:20 AM [...] functioning -Oscar removed 09/04 and patient voiding -[facility] consult; arranged per CM -ostomy consult Assessment [...] today -ostomy functioning -leave Oscar in place -[facility] consult -ostomy consult Assessment & Plan (09/03/2020 [...] of bowel function -leave Oscar in place -[facility] consult -ostomy consult Assessment & Plan (09/02/2020 [...] of bowel function -leave Oscar in place -[facility] consult -ostomy consult Assessment & Plan (09/01/2020 [...] of bowel function -leave Oscar in place -[facility] consult -ostomy consult Assessment & Plan (08/31/2020 [...] -leave Oscar in place; remove stents today -[facility] consult -ostomy consult Assessment & Plan (08/29/2020 [...] Prophylaxis: SCDs, SQH - Dispo: Admit to [facility], [place] tomorrow Assessment & Plan (08/28/2020 5:31 [...] Prophylaxis: SCDs, SQH - Dispo: Admit to [facility] Rectosigmoid pjjjpj8603/10/2020 Assessment & Plan (08/30/2020 6:22 AM EDT): ASSESSMENT: -this is a 60 y/o male with with newly diagnosed rectosigmoid adenocarcinoma, 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 Past Treatment and Therapy Plans Plan NameStart DateDiscontinue DateTreatment MedicationsDiscontinue ReasonPlan ProviderCyclesMODIFIED FOLFOX 6 - OXALIPLATIN 85 D1 5FU 400 IVP D1 5FU 2400 CADD OVER 46 HRS - Q14D11///* fluorouracil (ADRUCIL) * fluorouracil iv infusion CASSETTE (ADRUCIL)with rate * leucovorin iv piggyback * oxaliplatin iv piggyback in D5W 500 mL (ELOXATIN) * palonosetron (ALOXI) * pegfilgrastim (NEULASTA ONPRO) * pegfilgrastim (NEULASTA) Gui Avila MD8 of 8 cycles started Resolved Problems ProblemNoted DateDiagnosed DateResolved DatePersonal history of rectal cancer /KI (acute kidney injury)/ Assessment & Plan (09/09/2020 8:19 AM EDT): PLAN: -resolved -noted to have bump in Cr; now normal on AM labs -UA unremarkable -renal US done 09/01 -continue to trend Cr with labs -Oscra removed 09/04 and patient voiding Assessment & [...] with labs Neuropathy due to chemotherapeutic drugThrombocytopenia, [id number]
== END 2025-04-12 06:48 | disposition home or self-care (01) ==
PROVIDERS: Emergency Provider Student in an Organized Health Care Education/Training Program; PCP Student in an Organized Health Care Education/Training Program
DX: R07.9 Chest pain, unspecified (principal); I25.2 Old myocardial infarction; Z79.82 Long term (current) use of aspirin; Z79.899 Other long term (current) drug therapy
CPT/HCPCS: 36415; 71045; 80048; 84484; 85025; 93005; 99284; 99285